=== PATIENT | male | born 1970 | race Caucasian/White ===

== ENCOUNTER 2017-11-29 11:32 | Inpatient (IN) | payer MEDICAID ==
[~2017-11-29] VITALS: Ht 170.2 cm; Wt 55.3 kg
[~2017-11-29 11:32] MED LIST: ASPIR 8181 MG PO; GLUCOPHAGE850 MG PO; LISINOPRIL5 MG PO; TYLENOL PM EX-1 EACH PO; UNICOMPLEX M TA1 TA1 PO; ZOLOFT50 MG PO
[2017-11-29 11:54] LABS: HEMATOCRIT 43.6 % (42.0-52.0); HEMOGLOBIN 14.5 gm/dL (14.0-18.0); MCH 33.6 pg (26.0-34.0); MCHC 33.2 g/dL (28.0-37.0); MCV 101.1 fL (80.0-100.0); MPV 7.9 fl. (7.2-11.1); NUCLEATED RBCS 0 /100WBC; PLATELET COUNT* 148 thou/uL (150-400); RBC 4.31 mil/uL (4.50-6.00); RDW-CV 14.1 % (10.5-14.5); WBC 17.7 thou/uL (4.0-11.0)
[2017-11-29 11:58] VITALS: BP 127/93
[2017-11-29 12:01] LABS: ANION GAP 27 mmol/L (7-16); BUN 16 mg/dL (7-18); CALCIUM 8.6 mg/dL (8.5-10.1); CHLORIDE 88 mmol/L (98-107); CO2 18 mmol/L (21-32); CREATININE 1.8 mg/dL (0.6-1.3); GLUCOSE 325 mg/dL (70-99); POTASSIUM 3.2 mmol/L (3.5-5.1); SODIUM 133 mmol/L (136-145)
[2017-11-29 12:03] LABS: INR 1.1; PROTIME 10.3 Seconds (9.20-11.50)
[2017-11-29 12:08] LABS: ALBUMIN 4.3 g/dL (3.4-5.0); ALKALINE PHOSPHATASE 106 U/L (46-116); SGOT 87 U/L (15-37); SGPT 80 U/L (30-65); TROPONIN-I LEVEL <0.06 ng/mL (<0.06)
[2017-11-29] MEDS ORDERED: NEURONTIN 300300 M1 PO (12:15)
[2017-11-29] MEDS ORDERED: LEXAPRO 10 MG T10 M2 PO (12:15)
[2017-11-29 12:16] LABS: ABSOLUTE BASOPHILS 0.2 thou/uL (0.0-0.2); ABSOLUTE EOSINOPHILS 0.2 thou/uL (0.0-0.7); ABSOLUTE LYMPHOCYTES 1.9 thou/uL (0.8-5.3); ABSOLUTE MONOCYTES 0.7 thou/uL (0.0-1.2); ABSOLUTE NEUTROPHILS 14.7 thou/uL (1.6-8.1); ANISOCYTOSIS 1+; PLATELET ESTIMATE DECREASED
[2017-11-29] MEDS ORDERED: REMERON 30 MG T30 M1 PO (12:16)
[2017-11-29] MEDS ORDERED: RISPERDAL 1 MG T1 MG PO (12:16)
[2017-11-29 12:17] LABS: POIKILOCYTOSIS 1+
[2017-11-29] MEDS ORDERED: TRAZODONE 150150 M1 PO (12:17)
[2017-11-29 12:51] LABS: BE -8.7 mmol/L (-2 to +3); PCO2 23.6 mmHg (35.0-45.0); pH 7.392 (7.340-7.450)
[2017-11-29 12:52] LABS: PO2 151.6 mmHg (75.0-100.0)
[2017-11-29 13:17] LABS: URINE BLOOD TRACE (Negative); URINE CLARITY CLEAR; URINE COLOR YELLOW; URINE GLUCOSE-RANDOM 2+ (Negative); URINE LEUKOCYTES-REFLEX NEGATIVE (Negative); URINE NITRITE-REFLEX NEGATIVE (Negative); URINE PROTEIN TRACE (Negative); URINE SPECIFIC GRAVITY >= 1.030 (1.005-1.030); URINE UROBILINOGEN 0.2 E.U./dl (0.2-1.0)
[2017-11-29 13:19] LABS: ICTOTEST (BILI CONFIRMATORY) Negative (Negative); URINE BILIRUBIN 1+ (Negative); URINE KETONES 3+ (Negative)
[2017-11-29 13:25] LABS: AMP/METHAMP Negative (Negative); BARBITURATES Negative (Negative); BENZODIAZEPINES Negative (Negative); COCAINE Negative (Negative); METHADONE Negative (Negative); OPIATES Negative (Negative); PCP Negative (Negative); THC Negative (Negative)
[2017-11-29 14:45] VITALS: BP 138/95
[2017-11-29 14:58] VITALS: BP 119/85
[2017-11-29 20:00] VITALS: BP 159/99
[2017-11-29 23:52] VITALS: BP 93/71
[2017-11-30 04:00] VITALS: BP 125/71
[2017-11-30 04:28] LABS: ABSOLUTE LYMPHOCYTES 3.4 thou/uL (0.8-5.3); ABSOLUTE MONOCYTES 0.9 thou/uL (0.0-1.2); BASOPHILS 0.2 %; EOSINOPHILS 0.3 %; HEMATOCRIT 34.1 % (42.0-52.0); MCHC 34.1 g/dL (28.0-37.0); MCV 99.9 fL (80.0-100.0); MPV 8.1 fl. (7.2-11.1); NUCLEATED RBCS 0 /100WBC; PLATELET COUNT* 93 thou/uL (150-400); POLYS 71.5 %; RBC 3.42 mil/uL (4.50-6.00); RDW-CV 14.2 % (10.5-14.5); WBC 15.4 thou/uL (4.0-11.0)
[2017-11-30 04:42] LABS: HEMOGLOBIN 11.6 gm/dL (14.0-18.0)
[2017-11-30 05:45] LABS: CALCIUM 7.5 mg/dL (8.5-10.1)
[2017-11-30 05:48] LABS: POTASSIUM 2.6 mmol/L (3.5-5.1)
[2017-11-30 08:00] VITALS: BP 156/101
--- NOTE | 2017-11-30 10:43 | EKG ---
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1970 Requested By: Lexi Layne Order Number: [id number] Reading MD: Jason Thakur Measurements Intervals [place] Rate: 133 P: 76 VA: 140 QRS: 250 QRSD: 93 T: 52 QT: 323 QTc: 481 Interpretive Statements Sinus tachycardia LAE, consider biatrial enlargement Right ventricular hypertrophy Inferior infarct, old old anterior infarction Compared to ECG 02/14/2015 10:13:05 Right ventricular hypertrophy now present Sinus rhythm no longer present Myocardial infarct finding still present Electronically Signed On 11-30-2017 10:43:28 CDT by Jason Thakur [email or web address] <ELECTRONICALLY SIGNED> By: Jason Thakur MD, [facility] 11/30/17 1043 1204 1204 Jason Thakur MD, [facility] /EPI
[2017-11-30 12:04] VITALS: BP 130/91
--- NOTE | 2017-11-30 14:44 | 2DMMODE ---
[place] [address] 2 D/M-MODE ECHOCARDIOGRAM Name: JONESBHAVYA W Room: [address] IN .R.#: [id number] Admission: 11/29/17 Attend Phys: Ghulam Hobbs, Discharge: Date of : 70 Date of Service: 11/30/17 1444 Report #: [id number] THIS REPORT FOR: //name// APPROVED REPORT Study performed: 11/30/2017 10:34:54 EXAM: Comprehensive 2D, Doppler, and color-flow Echocardiogram Patient Location: Bedside BSA: 1.60 HR: 110 bpm BP: 125/71 mmHg Other Information Study Quality: Good Indications Cardiomyopathy 2D Dimensions LVEF(%): 67.53 (>50%) IVSd: 11.72 (7-11mm) LVOT Diam: 22.75 (18-24mm) LVDd: 43.38 mm PWd: 8.71 (7-11mm) Ascending Ao: 31.01 (22-36mm) LVDs: 27.21 (25-40mm) Aortic Root: 27.01 mm Aguilera's LVEF: 67.53 % Volumes Left Atrial Volume (Systole) LA ESV Index: 24.40 mL/m2 Aortic Valve AoV Peak Marvin.: 1.19 m/s AO Peak Gr.: 5.70 mmHg LVOT Max P.99 mmHg AO Mean Gr.: 3.45 mmHg LVOT Mean P.34 mmHg LVOT Max V: 1.00 m/s AO V2 VTI: 16.30 cm LVOT Mean V: 0.72 m/s ADRIANNA (VTI): 3.89 cm2 LVOT V1 VTI: 15.61 cm Mitral Valve E/A Ratio: 1.00 MV Decel. Time: 234.13 ms MV E Max Marvin.: 0.76 m/[place] [address] 2 D/M-MODE ECHOCARDIOGRAM Name: BHAVYA JONES Joy Room: [address] IN [facility]#: [id number] Admission: 11/29/17 Attend Phys: Ghulam Hobbs, Discharge: Date of : 70 Date of Service: 11/30/17 1444 Report #: [id number] MV PHT: 67.90 ms MVA (PHT): 3.24 cm2 TDI E/Lateral E': 4.75 E/Medial E': 6.33 Medial E' Marvin.: 0.12 m/s Lateral E' Marvin.: 0.16 m/s Pulmonary Valve PV Peak Marvin.: 0.93 m/s PV Peak Gr.: 3.47 mmHg Left Ventricle The left ventricle is normal size. There is normal LV segmental wall motion. There is normal left ventricular wall thickness. Left ventricular systolic function is normal. The left ventricular ejection fraction is within the normal range. LVEF is 60-65%. The left ventricular diastolic function is normal. Right Ventricle The right ventricle is normal size. The right ventricular systolic function is normal. Atria The left atrium size is normal. The right atrium size is normal. Aortic Valve The aortic valve is normal in structure. No aortic regurgitation is present. There is no aortic valvular stenosis. Mitral Valve The mitral valve is normal in structure. Trace mitral regurgitation. No evidence of mitral valve stenosis. Tricuspid Valve The tricuspid valve is normal in structure. Trace tricuspid regurgitation. Pulmonic Valve The pulmonary valve is normal in structure. There is no pulmonic valvular regurgitation. Great Vessels The aortic root is normal in size. IVC is normal in size and collapses with >50% [place] [address] 2 D/M-MODE ECHOCARDIOGRAM Name: BHAVYA JONES Room: [address] IN [facility]#: [id number] Admission: 11/29/17 Attend Phys: Ghulam Hobbs, Discharge: Date of : 70 Date of Service: 11/30/17 1444 Report #: [id number] Pericardium There is no pericardial effusion. <Conclusion> Left ventricular systolic function is normal. The left ventricular ejection fraction is within the normal range. <ELECTRONICALLY SIGNED> By: Jason Thakur MD, FACC 11/30/17 1444 1444 1444 Jason Thakur MD, [facility] /INF
[2017-11-30 16:45] VITALS: BP 134/88
[2017-11-30 20:00] VITALS: BP 129/85
[2017-12-01] VITALS: BP 139/89
[2017-12-01 04:00] VITALS: BP 98/67
[2017-12-01 05:44] LABS: POTASSIUM 4.6 mmol/L (3.5-5.1)
[2017-12-01 08:30] VITALS: BP 157/96
[2017-12-01 10:58] LABS: ABSOLUTE BASOPHILS 0.1 thou/uL (0.0-0.2); ABSOLUTE LYMPHOCYTES 2.8 thou/uL (0.8-5.3); ABSOLUTE MONOCYTES 0.6 thou/uL (0.0-1.2); ABSOLUTE NEUTROPHILS 5.4 thou/uL (1.6-8.1); BASOPHILS 1.2 %; EOSINOPHILS 0.5 %; HEMATOCRIT 28.5 % (42.0-52.0); HEMOGLOBIN 9.7 gm/dL (14.0-18.0); MCH 34.3 pg (26.0-34.0); MCHC 34.1 g/dL (28.0-37.0); MCV 100.6 fL (80.0-100.0); MONOCYTES 6.8 %; NUCLEATED RBCS 0 /100WBC; PLATELET COUNT* 83 thou/uL (150-400); POLYS 60.5 %; RBC 2.83 mil/uL (4.50-6.00); RDW-CV 14.2 % (10.5-14.5); WBC 8.9 thou/uL (4.0-11.0)
--- NOTE | 2017-12-01 11:09 | EKG ---
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1970 Requested By: Ghulam Hobbs Order Number: [id number] Reading MD: Jai Griffin Measurements Intervals [place] Rate: 92 P: 38 VA: 160 QRS: -76 QRSD: 98 T: 6 QT: 357 QTc: 442 Interpretive Statements Sinus rhythm Probable left atrial enlargement Inferior infarct, old Anteroseptal infarct, age indeterminate Compared to ECG 11/29/2017 12:04:24 Sinus tachycardia no longer present Right ventricular hypertrophy no longer present Myocardial infarct finding still present Electronically Signed On 12-01-2017 11:09:08 CDT by Jai Griffin [email or web address] <ELECTRONICALLY SIGNED> By: Jai Griffin MD, FACC 12/01/17 1109 08 08 Jai Griffin MD, FACC /EPI
--- NOTE | 2017-12-01 11:15 | CON ---
[address] [address] CONSULTATION Name: JONESBHAVYA Room: [address] IN M.R.#: [id number] Admission: 11/29/17 Attend Phys: Ghulam Hobbs MD Discharge: Date of : 70 Report #: [id number] THIS REPORT FOR: //name// CC: Ghulam Hobbs [facility] physician/PCP DATE OF SERVICE: 11/30/2017 HISTORY OF PRESENT ILLNESS: The patient is a 47-year-old single white male who I was asked to see in the hospital today because of the presence of a loop recorder. The history was obtained from the patient. However, he is currently drowsy and barely arousable. There are no significant old records. He is primarily cared for at [facility]. He was hospitalized here in 01/2015. At that time, he apparently had been consuming alcohol and woke up with some numbness. Paramedics brought him here to [facility]. He has apparently been incarcerated in the past. He has a history of schizophrenia. He had previous coronary artery bypass surgery in 2012. He apparently had a history of strokes. The patient was eventually discharged and told to stop drinking alcohol and smoking. The patient recently apparently had a loop recorder implanted by Dr. Leo at [facility]. The reasons are unclear. The patient was brought to the emergency room last night by paramedics. Apparently, he was confused and weak. He had been drinking alcohol. The patient was brought to the Emergency Room. A code stroke was actually initiated last night. He was admitted to a monitored bed. The patient had some nausea and vomiting. He was admitted by the hospitalist service. Cardiology consultation was requested. PAST MEDICAL HISTORY: Otherwise significant for hypertension. MEDICATIONS: On admission last night included aspirin, Zoloft, metformin, lisinopril, Remeron, Risperdal, trazodone. ALLERGIES: He had no known drug allergies. FAMILY HISTORY: Positive for heart disease. SOCIAL HISTORY: He is single, lives in [place], [place]. He used to work for a [employer] service. He smokes and he drinks alcohol. No history of illicit drug use. REVIEW OF SYSTEMS: As noted. Apparently, he has a previous history of stroke, no history of asthma. No history of peptic ulcer disease or liver disease. 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 He has a history of bipolar disorder. PHYSICAL EXAMINATION: GENERAL: Revealed a disheveled, young white male, lying in bed[place] [address] CONSULTATION Name: BHAVYA JONES Room: [address]#: [id number] Admission: 11/29/17 Attend Phys: Ghulam Hobbs MD Discharge: Date of : 70 Report #: [id number] no acute distress. VITAL SIGNS: He had a blood pressure 120/80, pulse was 100, he was afebrile. HEENT: He is anicteric. Conjunctivae pink. Mucous members are moist. NECK: Veins do not appear distended. CHEST: Clear to auscultation. CARDIOVASCULAR: Regular rate and rhythm. ABDOMEN: Soft. EXTREMITIES: He had no edema. Posterior pulses 2+ bilaterally. SKIN: The patient appeared to have an implanted cardiac sonographer near the left nipple area. There was some erythema over the area; however, no drainage noted. It does not appear to be tender. It is somewhat firm. NEUROLOGIC: He is oriented to place and time and he is easily aroused, moved all extremities, but somewhat drowsy. LABORATORY DATA: His workup, he actually had an echocardiogram here in 2014 that showed an ejection fraction of 55% with no shunt noted by bubble study. His workup in the Emergency Room last night, he had a CT scan of the head done without contrast that showed evidence of previous infarction. Portable chest x-ray showed normal heart size, clear lung mendez. CT scan of the chest showed hyperinflated lung mendez, coronary artery disease consistent with calcification. CT scan of the abdomen without contrast after he fell showed hepatomegaly with steatosis, evidence of chronic pancreatitis, kidney stones. His lab work, sodium 134, potassium is only 3.6, his BUN 9, creatinine 1, glucose 130, magnesium is pending. Liver function studies were normal. Troponin 0.06. Alcohol less than 10. His white blood cell count 15.4, hemoglobin 11.6, platelet count 93,000. IMPRESSION AND RECOMMENDATIONS: 1. Drowsy. Suspect alcohol intoxication. 2. Previous stroke. 3. Previous coronary artery bypass surgery. 4. Hypertension. The patient has been on an DENISA inhibitor. 5. Diabetes. 6. Manic depressive illness. 7. Previous implantation of loop recorder, appears to be no active infection. 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 <ELECTRONICALLY SIGNED> By: Jason Thakur MD, FACC 12/01/17 1115 0808 1228Dayulia Thakur MD, FACC /nt
[2017-12-01 11:21] VITALS: BP 101/74
[2017-12-01 11:54] LABS: ALBUMIN 2.6 g/dL (3.4-5.0); CALCIUM 7.5 mg/dL (8.5-10.1); CREATININE 0.9 mg/dL (0.6-1.3); TOTAL BILIRUBIN 0.4 mg/dL (<0.1-1.0); TOTAL PROTEIN 5.1 g/dL (6.4-8.2)
[2017-12-01 15:39] VITALS: BP 118/79
[2017-12-01 20:00] VITALS: BP 154/99
[2017-12-02 01:01] VITALS: BP 142/92
[2017-12-02 04:00] VITALS: BP 115/79
[2017-12-02 05:00] LABS: ABSOLUTE BASOPHILS 0.1 thou/uL (0.0-0.2); ABSOLUTE EOSINOPHILS 0.1 thou/uL (0.0-0.7); ABSOLUTE LYMPHOCYTES 2.6 thou/uL (0.8-5.3); ABSOLUTE MONOCYTES 0.6 thou/uL (0.0-1.2); ABSOLUTE NEUTROPHILS 3.2 thou/uL (1.6-8.1); BASOPHILS 0.8 %; EOSINOPHILS 1.4 %; HEMATOCRIT 29.7 % (42.0-52.0); HEMOGLOBIN 9.9 gm/dL (14.0-18.0); LYMPHOCYTES 39.4 %; MCHC 33.5 g/dL (28.0-37.0); MCV 101.7 fL (80.0-100.0); MONOCYTES 9.4 %; MPV 8.3 fl. (7.2-11.1); NUCLEATED RBCS 0 /100WBC; PLATELET COUNT* 111 thou/uL (150-400); RBC 2.92 mil/uL (4.50-6.00); RDW-CV 13.6 % (10.5-14.5); WBC 6.5 thou/uL (4.0-11.0)
[2017-12-02 05:15] LABS: PREALBUMIN 15.3 mg/dL (18.0-35.7)
[2017-12-02 05:16] LABS: ALBUMIN 2.6 g/dL (3.4-5.0); CALCIUM 8.6 mg/dL (8.5-10.1); CREATININE 0.7 mg/dL (0.6-1.3); POTASSIUM 4.6 mmol/L (3.5-5.1); TOTAL BILIRUBIN 0.3 mg/dL (<0.1-1.0); TOTAL PROTEIN 5.8 g/dL (6.4-8.2)
[2017-12-02 07:40] VITALS: BP 150/107
[2017-12-02 16:23] VITALS: BP 133/91
[2017-12-02 20:00] VITALS: BP 146/95
[2017-12-03] VITALS: BP 112/73
[2017-12-03 04:00] VITALS: BP 146/93
[2017-12-03 08:00] VITALS: BP 100/76
--- NOTE | 2017-12-03 11:01 | EKG ---
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 : 1970 Requested By: Ghulam Hobbs Order Number: [id number] Reading MD: Jason Thakur Measurements Intervals [place] Rate: 92 P: 20 MT: 158 QRS: -87 QRSD: 87 T: 48 QT: 346 QTc: 429 Interpretive Statements Sinus rhythm Inferior infarct, old Anterior infarct, old Compared to ECG 11/30/2017 21:09:34 No significant changes Electronically Signed On 12-03-2017 11:00:52 CDT by Jason Thakur [email or web address] <ELECTRONICALLY SIGNED> By: Jason Thakur MD, [facility] 12/03/17 1100 19 19 Jason Thakur MD, [facility] /EPI
[2017-12-03 11:56] VITALS: BP 151/104
[2017-12-03] MEDS ORDERED: FOLIC ACID1 MG PO (15:13)
[2017-12-03] MEDS ORDERED: AUGMENTIN 875-1 EACH PO (15:14)
[2017-12-03] MEDS ORDERED: VITAMIN B-1100 M1 PO (15:18)
[2017-12-03 15:19] VITALS: BP 151/104
[2017-12-03 15:42] VITALS: BP 138/96
--- NOTE | 2017-12-07 17:33 | CON ---
[address] [address] CONSULTATION Name: JONESBHAVYA W Room: [address] IN M.R.#: [id number] Admission: 11/29/17 Attend Phys: Ghulam Hobbs MD Discharge: 12/03/17 Date of : 70 Report #: [id number] THIS REPORT FOR: //name// CC: Ghulam Hobbs [facility] physician/PCP DATE OF SERVICE: 12/02/2017 HISTORY OF PRESENT ILLNESS: This is a 47-year-old male patient who was evaluated by me for altered mental status. This patient is a poor historian. No family member is available, but I will try to get hold of them. I reviewed this patient's records and it looks like the patient was admitted with weakness and what appeared to be falls. The circumstances of that are not clear. The patient does have a history of pretty significant alcohol intake, and he was drinking alcohol at that time, but he cannot describe to me what happened during that period of time. His mentation has improved, but he is still moderately confused. He feels generalized weakness, but does not believe that he has any focal weakness. He does not complain of any associated spine symptoms. REVIEW OF SYSTEMS: Pretty extensive. I carried out the 14-point review of systems in this patient. It looks like this time he has been admitted with weakness. Prior to this he also had admission here in 2014 when he was still admitted with weakness at that time and he was also having trouble with alcoholism at that time. He still has the same problems. His CT scan shows stroke, but he does not know when this stroke happened. He has a history of subdural, but he does not provide me any more history in that regard. He has a loop recorder, but I do not know why he has the loop recorder. He has already been seen by director independent in that regard. He was complaining of some abrasions on multiple spots. He does not think his vision is impaired. He is not having any active musculoskeletal, constitutional, dermatological, hematological, throat, allergic symptom, which is new. He says he feels depressed, does not appear to be in any respiratory difficulty or has any ENT symptoms. PAST MEDICAL HISTORY: Positive for alcoholism. FAMILY HISTORY: Negative for any early age stroke. SOCIAL HISTORY: He smokes and he drinks alcohol. PHYSICAL EXAMINATION: Indicate he is alert. He is responsive. He knows it is November, but says it is . His speech is pretty dysarthric, is very difficult to understand. His memory, fund of knowledge is diminished. Cranial nerve examination 2-12 was carried out, and I do not see any definite abnormality. He moves all four extremities, but is pretty significantly weak in all four extremities. His reflexes are absent in the lower extremities, but position sense is present. His tone looks mostly unremarkable[place] [address] CONSULTATION Name: BHAVYA JONES Joy Room: [address] IN [facility].#: [id number] Admission: 11/29/17 Attend Phys: Ghulam Hobbs MD Discharge: 12/03/17 Date of : 70 Report #: [id number], but he does it so slowly it is very difficult for me to tell. I cannot have a very good look at the patient's fundus, but I do not believe there is a papilledema. He is a thinly built individual who does not have any dysmorphic features of eyes, ears and face. His vision and hearing look adequate. His cardiac examination appears unremarkable. He does not appear to be having any respiratory difficulty and has an occasional rhonchi on either side. His pulses are difficult to feel. He has no edema, cyanosis or jaundice. His blood pressure is 115/79, respirations 18, pulse is 75, temperature is 97.7. He is anemic with a hemoglobin of 9.9. His last magnesium was low at 1.5, but that was done in 2014. He did have a CT scan of the head, which was abnormal with a possible stroke on the left side. IMPRESSION: Very difficult to form in this patient as he is predisposed to multiple etiologies which can contribute to the patient's symptoms. He is predisposed to central pontine myelinolysis because of his history of alcoholism. He appears to have at least some neuropathy because his reflexes could not be elicited in the lower extremities. He has a prior history of stroke on the CT and a subdural and he has a history of chronic alcoholism. All of it will contribute to his symptoms, but I am not sure how much is treatable. I discussed the situation with him and I discussed with him that he needs to stop drinking alcohol and stop smoking. He understood that, but those advices have been given to him in the past also and he has not followed that. I need to find out why his MRI was canceled, but I suspect that may have been because he has metal or they may not be sure that his loop recorder is MRI compatible. We will also try to talk to the patient's daughter. RECOMMENDATIONS: 1. We will recheck the potassium. 2. I will do a TSH and vitamin B12 level. 3. I will try to find out why MRI was canceled. If MRI can be done, that will be a test of choice for central pontine myelinolysis secondary to alcoholism. 4. I agree with rehabilitation evaluation to see if he is a candidate. 5. He will need some evaluation of his spine if it can be done, if further workup is unremarkable, especially if MRI of the brain can be done and if it is unremarkable, then we need to look at his spine, but I am not sure if any of those can be done and I will talk to the radiologist about it. We will also discuss the patient with you. Thank you very much for this referral and I will follow the patient along with you. <ELECTRONICALLY SIGNED> By: Truong [place] MD 12/07/17 1733 0832 1453Pkuldip Washington MD /nt
== END 2017-12-03 17:45 | DRG 177 ==
LOC: M.ERS 11:32 → M.2W 13:56 → M.TBA-ER 13:56 → M.2W 14:48
PROVIDERS: Personal Emergency Response Attendant; ADMIT Internal Medicine
DX: J69.0 Pneumonitis due to inhalation of food and vomit (principal); G93.40 Encephalopathy, unspecified; F31.30 Bipolar disorder, current episode depressed, mild or moderate severity, unspecified; N17.9 Acute kidney failure, unspecified; R65.10 Systemic inflammatory response syndrome (SIRS) of non-infectious origin without acute organ dysfunction; E87.2 Acidosis; K86.1 Other chronic pancreatitis; E86.0 Dehydration; F41.9 Anxiety disorder, unspecified; F10.20 Alcohol dependence, uncomplicated; I10 Essential (primary) hypertension; E11.65 Type 2 diabetes mellitus with hyperglycemia; E11.42 Type 2 diabetes mellitus with diabetic polyneuropathy; F17.210 Nicotine dependence, cigarettes, uncomplicated; W18.30XA Fall on same level, unspecified, initial encounter; Y93.89 Activity, other specified; Y92.89 Other specified places as the place of occurrence of the external cause; Y99.8 Other external cause status; Z86.73 Personal history of transient ischemic attack (TIA), and cerebral infarction without residual deficits; Z95.1 Presence of aortocoronary bypass graft; Z79.899 Other long term (current) drug therapy; Z82.49 Family history of ischemic heart disease and other diseases of the circulatory system

== ENCOUNTER 2017-12-03 15:39 | Inpatient (IN) | payer MEDICAID ==
[~2017-12-03] VITALS: Ht 170.2 cm; Wt 54.4 kg
[~2017-12-03 15:39] MED LIST changes: +AUGMENTIN 875-1 EACH PO; +FOLIC ACID1 MG PO; +LEXAPRO 10 MG T10 M2 PO; +NEURONTIN 300300 M1 PO; +REMERON 30 MG T30 M1 PO; +RISPERDAL 1 MG T1 MG PO; +TRAZODONE 150150 M1 PO; +VITAMIN B-1100 M1 PO
[2017-12-03 17:40] VITALS: BP 112/88
[2017-12-03 20:00] VITALS: BP 125/91
[2017-12-04 05:16] LABS: CALCIUM 9.6 mg/dL (8.5-10.1); CREATININE 0.8 mg/dL (0.6-1.3); MAGNESIUM 1.3 mg/dL (1.8-2.4); POTASSIUM 5.2 mmol/L (3.5-5.1)
--- NOTE | 2017-12-04 05:16 | NUR ---
ASSUMED PATIENT AT 1900. SPARK PLUG TESTER ASSESSMENT COMPLETED DOCUMENTED, PATIENT HAD NO COMPLAINTS OF PAIN OR DISCOMFORT. PATIENT IN BED UPON ARRIVAL, DID NOT WITNESS PATIENT OUT OF BED DURING SIFT. UINATES PER URINAL AND CALLS OUT FOR SAFF TO EMPTY. HOURLY ROUNDING COMPLETED DOCUMENTED.
[2017-12-04 05:53] LABS: HEMATOCRIT 36.1 % (42.0-52.0); MCH 32.9 pg (26.0-34.0); MCV 99.8 fL (80.0-100.0); MPV 7.6 fl. (7.2-11.1); RBC 3.62 mil/uL (4.50-6.00); RDW-CV 14.2 % (10.5-14.5); WBC 7.2 thou/uL (4.0-11.0)
[2017-12-04 05:56] LABS: HEMOGLOBIN 11.9 gm/dL (14.0-18.0)
[2017-12-04 07:38] VITALS: BP 119/92
--- NOTE | 2017-12-04 09:14 | NUR ---
Nutrition: Pt admitted to Rehab with encephalopathy. RD visited with pt on other floor. He had stated he lost some wt d/t poor appetite. Usual wt was 135#, then down to 115#. Pt has had a good appetite since admission to hospital. Wt is now 122#. RX: folic acid, thiamine. Labs: BG 221, Na 134, K+ 5.2, alb 2.6, prealb 16.8. 2gm Na diet. Will continue to follow pt weekly on Rehab unit.
--- NOTE | 2017-12-04 15:24 | NUR ---
ASSESSMENT COMPLETED REFER TO COMPUTER CHARTING. PATIENT RESTING IN BED REPORTING NO PAIN, NAUSEA OR SHORTNESS OF AIR. BED IN LOW AND LOCKED POSITION. CALL LIGHT WITHIN REACH. PATIENT ON ROOM AIR. WORKING WITH THEARPY THIS SHIFT. DR DAVILA AND SURGERY BOTH CONSULTED FOR LEFT CHEST. DR DELACRUZ NOTIFIED WELL. NO NEW ORDERS AT THIS TIME. WILL CONTINUE TO MONITOR THIS SHIFT.
--- NOTE | 2017-12-04 16:37 | NUR ---
SW met with pt and pt friends/caregivers were bedside. SW completed assessment, introduced self, and SW role on rehab unit. Pt alert, oriented. Pt lives alone with caregiver/friend support; they live about 10 miles away. Pt has a cane and a walker. SW to continue to follow to assist with safe dc planning.
[2017-12-04 20:08] VITALS: BP 120/84
--- NOTE | 2017-12-05 02:16 | NUR ---
ASSUMED CARE AT 1930. PAIIENT IN CHAIR UNTIL AROUND 1999. UP WITH SBA, GAIT BELT, WALKER. REFUSED TO CHANGE OUT OF CLOTHES AT HS. VOIDS FELIBERTO URINE PER URINAL. TOOK COLACE THIS PM. NO C/O PAIN. HOURLY ROUNDS CONTINUE. BED ALARM ELECTRICAL DESIGN ENGINEER LITE IN REACH.
[2017-12-05 04:16] LABS: HEMATOCRIT 35.3 % (42.0-52.0); MCH 33.9 pg (26.0-34.0); MCHC 33.9 g/dL (28.0-37.0); MCV 100.1 fL (80.0-100.0); MPV 7.6 fl. (7.2-11.1); RBC 3.53 mil/uL (4.50-6.00); RDW-CV 13.6 % (10.5-14.5); WBC 7.4 thou/uL (4.0-11.0)
[2017-12-05 04:48] LABS: ALBUMIN 3.3 g/dL (3.4-5.0); CALCIUM 9.4 mg/dL (8.5-10.1); MAGNESIUM 1.6 mg/dL (1.8-2.4); POTASSIUM 4.7 mmol/L (3.5-5.1); TOTAL BILIRUBIN 0.2 mg/dL (<0.1-1.0); TOTAL PROTEIN 6.8 g/dL (6.4-8.2)
--- NOTE | 2017-12-05 05:23 | NUR ---
SLEPT MOST OF THE NIGHT. TURNS SELF, VOIDS PER URINAL, NURSING EMPTIES. NO C/O PAIN. HOURLY ROUNDS CONTINUE. BED ALARM ON. CALL LITE IN REACH.
[2017-12-05 07:56] VITALS: BP 91/68
[2017-12-05 08:00] VITALS: BP 91/68
[2017-12-05 16:19] LABS: CALCIUM 9.4 mg/dL (8.5-10.1); MAGNESIUM 1.6 mg/dL (1.8-2.4); POTASSIUM 4.3 mmol/L (3.5-5.1)
--- NOTE | 2017-12-05 17:44 | NUR ---
PATIENT HAS BEEN A/O X 4 THIS SHIFT, FORGETFUL AND SLOW TO RESPOND WITH PROCESSING. PATIENT HAD LOOP RECORDER REMOVED WITH DR SINCLAIR AT BEDSIDE THIS SHIFT. DRESSINGS TO CHEST REMAIN CLEAN, DRY AND INTACT. PATIENT PARTICIPATED WITH ALL THERAPIES THIS SHIFT. PATIENT SBA WITH WALKER TO TRANSFER. PATIENT VOIDING PER URINAL. PATIENT UP IN CHAIR FOR MAJORITY OF SHIFT. TOLERATING DIET AND TAKING ORAL FLUIDS WELL. PATIENT TO DINING ROOM FOR MEALS. MAG BEING REPLACED PER ELECTROLYTE PROTOCOL. HOULRY ROUNDING COMPLETED. CALL LIGHT WITHIN REACH. WILL CONTINUE WITH PLAN OF CARE.
[2017-12-05 21:48] VITALS: BP 109/82
--- NOTE | 2017-12-05 22:17 | NUR ---
ASSUMED CARE AT 1930. PATIENT RESTING IN BED. VOIDS PER URINAL LARGE AMOUNTS LIGHT YELLOW URINE. NURSING EMPTIES. TURNS SELF. TAKES PILLS WHOLE WITH WATER. MEDIAL CHEST DRESSING C/D/I. LATERAL CHEST DRESSING HAS OLD SHAWDOW SEROSANG DRAINAGE. GAVE MG AT HS PER ELECTROLYE PROTOCOL, SEE MAR. WILL DRAW LABS IN AM PER PROTOCOL. TOOK COLACE AT HS, DID NOT WANT MOM UNTIL MORNING BECAUSE OF CONCERN OF HAVING BM IN THE NIGHT. NO C/O PAIN. HOURLY ROUNDS CONTINUE. BED ALARM ON. CALL LITE IN REACH.
--- NOTE | 2017-12-06 05:16 | NUR ---
SLEPT MOST OF THE NIGHT EXCEPT TO VOID. VOIDS PER URINAL FELIBERTO URINE. NO C/O PAIN. TURNS SELF. HOURLY ROUNDS CONTINUE. BED ALARM ON. CALL LITE IN REACH.
--- NOTE | 2017-12-06 08:20 | NUR ---
SURGERY RESIDENT IN ROOM AND CHANGED DRESSINGS WITHOUT NOTIFYING RN, UNABLE TO OBTAIN PICTURES OF WOUNDS AT THIS TIME.
[2017-12-06 09:22] VITALS: BP 122/87
[2017-12-06 09:30] VITALS: BP 122/87
--- NOTE | 2017-12-06 17:53 | NUR ---
PATIENT HAS BEEN A/O THIS SHIFT, SLOW TO RESPOND AT TIMES. PATIENT UP TO CHAIR THIS SHIFT. PATIENT SBA WITH GAITBELT AND WALKER. PATIENT BATHED WITH SUPERVISION THIS SHIFT. PATIENT SUPERVISION WITH DRESSING, NEEDING CUES AT TIMES. PATIENT MEDICATED FOR CHEST WALL PAIN WITH TYLENOL WITH FAIR AFFECT. PATIENT'S MAG REPLACED PER ELECTROLYTE PROTOCOL, REPEAT LABS IN AM. DRESSINNGS TO LEFT CHEST CHANGED BY SURGERY THIS AM, UNABLE TO OBTAIN PICTURES. PATIENT HAS SLEPT IN NAPS THIS AFTERNOON. PATIENT EATING WELL AND TOLERATING ORAL FLUIDS. HAD VISITORS THIS AFTERNOON. HOURLY ROUNDING COMPLETED. CALL LIGHT WITHIN REACH. WILL CONTINUE WITH PLAN OF CARE.
[2017-12-06 20:39] VITALS: BP 123/84
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
[2017-12-07 05:04] LABS: HEMATOCRIT 31.9 % (42.0-52.0); HEMOGLOBIN 10.9 gm/dL (14.0-18.0); MCHC 34.2 g/dL (28.0-37.0); MCV 99.2 fL (80.0-100.0); MPV 7.5 fl. (7.2-11.1); RBC 3.22 mil/uL (4.50-6.00); RDW-CV 13.2 % (10.5-14.5); WBC 6.3 thou/uL (4.0-11.0)
[2017-12-07 05:07] LABS: ALBUMIN 3.1 g/dL (3.4-5.0); CALCIUM 8.6 mg/dL (8.5-10.1); CREATININE 0.9 mg/dL (0.6-1.3); MAGNESIUM 1.8 mg/dL (1.8-2.4); POTASSIUM 3.8 mmol/L (3.5-5.1); TOTAL BILIRUBIN 0.2 mg/dL (<0.1-1.0); TOTAL PROTEIN 6.4 g/dL (6.4-8.2)
--- NOTE | 2017-12-07 05:48 | NUR ---
SLEPT MOST OF THE NIGHT. TURNS SELF. VOIDS PER URINAL. NO C/O PAIN. HOURLY ROUNDS CONTINUE. BED ALARM ON. CALL LITE IN REACH.
[2017-12-07 08:00] VITALS: BP 107/76
--- NOTE | 2017-12-07 17:14 | NUR ---
SHIFT NOTE - DRESSING CHANGE DONE TO ANT CHEST. PACKING REPLACED AND 4X4 COVERED AREA. WOUND PIC OBTAINED. PT TO AMBULATE TO [facility] WITH WALKER FOR LUNCH AND DINNER.
[2017-12-07 20:09] VITALS: BP 105/74
--- NOTE | 2017-12-07 21:15 | NUR ---
RESTING QUIETLY IN BED AND WATCHING TV. TYLENOL GIVEN FOR COMPLAINT OF INCISIONAL PAIN WHERE CARDIAC DEVICE WAS REMOVED. 4X4 DRESSINGS OVER INCISION SITES DRY/INTACT. VOIDS DARK/YELLOW URINE PER URINAL. TOOK MEDICATIONS WHOLE WITH WATER. SNACK PROVIDED.
[2017-12-08 09:17] VITALS: BP 106/82
--- NOTE | 2017-12-08 16:54 | NUR ---
ASSUMMED CARE OF PT AT 0730, PT ALERT AND ORIENTED, SLOW TO ANSWER QUESTIONS AT TIMES, TRANSFERS WITH SBA GB WALKER, VOIDS PER URINAL, BM X 1 THIS SHIFT, CHEST INCISIONS REPACKED, SMALL AMOUNT OF BROWN DRAINAGE ON DRESSINGS, PT DENIES NEED FOR PAIN MEDICATION, PT UP IN CHAIR ALL SHIFT, PARTICIPATED IN ALL THERAPIES, AMBULATED TO DININGROOM FOR MEALS, HOURLY ROUNDING COMPLETED, ASSESSMENT COMPLETE, WILL CONTINUE TO MONITOR.
--- NOTE | 2017-12-08 20:05 | NUR ---
SITTING UP IN RECLINER WATCHING TV. PAIN MEDICATION GIVEN FOR INCISIONAL PAIN IN CHEST AREA. DRESSING OVER TWO INCISIONS DRY/INTACT. SNACK PROVIDED. TOOK MEDICATIONS WHOLE WITH WATER.
[2017-12-08 20:38] VITALS: BP 97/65
--- NOTE | 2017-12-09 05:23 | NUR ---
RESTED QUIETLY. NO FURTHER COMPLAINT OF URINE. USED THE URINAL DURING THE NIGHT. HOURLY ROUNDING IN PROGRESS.
[2017-12-09 09:00] VITALS: BP 117/83
--- NOTE | 2017-12-09 14:55 | NUR ---
SW met with pt to review team conference summary with pt and plan for pt to remain on rehab unit at least one more week with team to reassess pt length of stay during team conference next Thursday. Pt in agreement with plan. Team reported pt is supervision/standby to contact gaurd assist with most tasks of mobility and ADLs and mod assist to min assist with problem solving. Pt goal to be closer to mod I with all tasks as pt plans to dc home alone. SW to continue to follow to assist with safe dc planning.
--- NOTE | 2017-12-09 16:16 | NUR ---
PT HAS PARTICIPATED WITH THERAPIES AND CALLS FOR ASSSIST NEEDED. PT AMBULATES WITH GAITBELT AND SBA WITHOUT WALKER WITH STEADY GAIT. PRN FOR INCISIONAL CHEST PAIN GIVEN WITH GOOD EFFECT. INCISIONS TO CHEST CLEANSED WITH NUGAUZE REPACKED AND DRESSING APPLIED.NO DRAINAGE NOTED.PT REMAINS ALERT AND ORIENTATED AND IS CONTINENT OF B+B. PT PROGRESSES TOWARDS GOALS AND HOURLY ROUNDING CONTINUES.
[2017-12-09 19:40] VITALS: BP 110/64
--- NOTE | 2017-12-10 01:21 | NUR ---
ASSUMED CARE @ 1927-.SITS IN RECLINER W/ LE'S UP WATCHING TV.CHAIR ALARM ALREADY ON @ THIS TIME.SBA FOR TRANSFERS W/ GAIT BELT ONLY.HOB IN BED. HEELS OFF BED @ 2144.BED ALARM PUT ON @ 2144.URINAL W/IN REACH.NURSE EMPTIES URINAL @ NIGHT.TURNS SELF @ NIGHT.ON HOURLY ROUNDS.
--- NOTE | 2017-12-10 05:39 | NUR ---
SLEEPING SINCE 0.USED URINAL X2 DURING NIGHT.TOOK ALL TURKEY SANDWICH, PEACHES,APPLE JUICE,TIFFANY CRACKERS-1 PACKAGE & ORANGE SHERBET HS SNACKS. SLEPT CONTINOUSLY SINCE 0.
[2017-12-10 08:02] VITALS: BP 111/75
--- NOTE | 2017-12-10 18:49 | NUR ---
PT AMBULATES TO DINNINGROOM WITH SBA AND GAITBELT ON WITH STEADY GAIT. PT STARTED ON GLUCOSE MONITORING AND HAS HIGH BG WITH NOTIFIED AND EXTRA INSULIN GIVEN. PT HAS ALSO BEEN STARTED ON ORAL AGENTS. PT WAS QUESTIONED ABOUT CHECKING BLOOD GLUCOSE AT HOME AND DIABETIC MEDICATIONS AND STATED HE WAS ON MEDICATIONS AND CHECKED GLUCOSE AT HOME BUT DID NOT INFORM REHAB NURSES OF THIS.WILL REEDUCATE ON IMPORTANCE OF MONITORING AND MEDICATION TO CONTROL BG.PT SEENS TO BE ALERT AND ORIENTATED AND IS APPROPIATE.PT DOES CALL FOR ASSIST TO BATHROOM AND FOR ALL AMBULATION.PT PROGRESSES TOWARDS GOALS AND HOURLY ROUNDING CONTINUES.
[2017-12-10 20:10] VITALS: BP 110/73
--- NOTE | 2017-12-11 05:19 | NUR ---
PT SLEPT MOST OF SHIFT. ASSESSMENT DOCUMENTED. MEDS GIVEN PER E-JUN. NO REPORTS OF PAIN. PT AMBULATED FROM CHAIR TO BED WITH NO ASSIST. WILL CONTINUE WITH PLAN OF CARE.
[2017-12-11 08:35] VITALS: BP 109/69
--- NOTE | 2017-12-11 12:36 | NUR ---
WOUND CARE NOTE: CONSULT RECEIVED FOR SKIN TEARS. PATIENT IS S/P REMOVAL OF A LOOP RECORDER WITH 2 OPEN AREAS TO HIS LEFT CHEST. APPEARS THAT DISTAL TO THE DISTAL MOST WOUND THERE HAD BEEN A SKIN TEAR, BUT IT APPEARS TO HAVE HEALED. LEFT CHEST, SUPERIOR: FULL THICKNESS TISSUE BREAKDOWN MEASURING 0.2X1.4X1. ELIE-WOUND INTACT. CLEANSED WITH WOUND CLEANSER, PATTED DRY. PACKED WITH AQUACEL AG AND COVERED WITH BORDERED GAUZE. LEFT CHEST, DISTAL: FULL THICKNESS TISSUE BREAKDOWN MEASURING 0.5X2.5X1.2. ELIE-WOUND APPEARS EDEMATOUS. CLEANSED WITH WOUND CLEANSER, PATTED DRY. PACKED WITH AQUACEL AG AND COVERED WITH BORDERED GAUZE. EDUCATED PATIENT ON DRESSING SELECTION, COMMUNICATED UNDERSTANDING. SPOKE WITH PHYSICIAN AND NEW ORDERS OBTAINED. RECOMMEND ENCOURAGE GOOD NUTRITION/HYDRATION DAILY DRESSING CHANGES
--- NOTE | 2017-12-11 18:12 | NUR ---
PT CARE ASSUMED AT 0730, ASSESSMENT AND VITAL SIGNS COMPLETED DOCUMENTED. PT HAS BEEN PLEASANT AND COOPERATIVE, COMPLETED ALL THERAPY SESSIONS SCHEDULED. PT AMBULATES TO AND FROM THE DINING ROOM FOR MEALS, EATS NEARLY 100% OF ALL MEALS AND INTERACTS WELL WITH THE OTHERS AT THE TABLE. HOURLY ROUNDING AND FALL PRECAUTIONS IN PLACE. NO ACUTE DISTRESS.
[2017-12-11 20:00] VITALS: BP 116/72
--- NOTE | 2017-12-12 00:56 | NUR ---
ASSUMED CARE AT 1930. RESTED IN RECLINER UNTIL AROUND 2129. UP WITH SBA, GAIT BELT, WALKER. HAD BOX LUNCH FOR HS SNACK. NO C/O PAIN. VOIDS PER URINAL. TAKES PILLS WHOLE WITH WATER. DRESSINGS TO CHEST C/D/I. TURNS SELF, REFUSES ASSIST. OBSERVED SLEEPING ON BOTH SIDES THUS FAR THIS SHIFT. HOURLY ROUNDS CONTINUE. BED ALARM ON. CALL LITE IN REACH.
--- NOTE | 2017-12-12 05:39 | NUR ---
OBSERVED SLEEPING ON HOURLY ROUNDS. NO C/O PAIN. VOIDS PER URINAL. BED ALARM ON. CALL LITE IN REACH. HOURLY ROUNDS CONTINUE.
[2017-12-12 08:00] VITALS: BP 126/82
--- NOTE | 2017-12-12 14:47 | NUR ---
ASSUMED CARE THIS AM, A/O, DENIES PAIN, NO DISTRESS NOTED, SEE ASSESSMENT FOR DETAILS. COMPLIANT WITH MEDS/CARES, PROGRESSING WELL WITH THERAPY TOWARD FUNCTIONAL GOALS. LEFT CHEST DRESSINGS CHANGED THIS SHIFT, MAGDALENO WELL. CONT POC.
--- NOTE | 2017-12-12 16:26 | NUR ---
DR. HILTON WITH VASCULAR SURGERY PAGED EARLIER REQUESTED BY DR. HANDLEY REGARDING COUMADIN MANAGEMENT DUE TO DEBRIDEMENT SCHEDULED FOR THURSDAY. NO RESPONSE FROM DR. HILTON OF THIS NOTE, PAGING AGAIN AT THIS TIME.
--- NOTE | 2017-12-12 18:27 | NUR ---
NO NEW ORDERS FROM DR. HILTON, STATES HE COULDN'T MAKE THAT DECISION. COUMADIN HELD PER PATIENT REQUEST, WOUND VAC STABLE, DSGS TO LLE C/D/I.
[2017-12-12 19:40] VITALS: BP 110/74
--- NOTE | 2017-12-13 02:06 | NUR ---
ASSUMED CARE @ -SAT.USING TOILET @ THIS TIME.VOIDED ONLY.ASSISTED TO BED @1924.HOB UP 30 DEGREES.URINAL W/IN REACH.HEELS OFF BED @ 1924.WATCHING TV.BED ALARM PUT ON @ 1924.SEE PAIN MANAGEMENT @ 2029.TURNS SELF @ NIGHT.TEMP @ 0-99.5 ORAL.TEMP RE-CHECKED @ 2214-.7 ORAL.NURSE EMPTIES URINAL @ NIGHT.ON HOURLY ROUNDS.
--- NOTE | 2017-12-13 05:22 | NUR ---
SLEPT EARLY SINCE 2114 & SLEPT THROUGH THE NIGHT.BRP X1.DID NOT USE URINAL DURING NIGHT.TOOK ALL TURKEY SANDWICH,POTATO CHIPS,PEACHES AND APPLE JUICE HS SNACKS.
--- NOTE | 2017-12-13 06:32 | NUR ---
LAST BM PER RECORD-12/09-THU.PRUNE JUICE 120 ML TAKEN @ 0604-12/13-THURSDAY.
--- NOTE | 2017-12-13 08:16 | PLAN ---
[address] [address] REHAB UNIT PLAN OF CARE Name: JONESBHAVYA Room: [address] IN .R.#: [id number] Admission: 12/03/17 Attend Phys: Mile Marinelli DO Discharge: Date of : 70 Report #: [id number] THIS REPORT FOR: //name// CC: AMANDA physician/PCP Mile Marinelli DATE OF SERVICE: 12/04/2017 OVERALL PLAN OF CARE: This is a 47-year-old male admitted to inpatient rehabilitation status post acute hospitalization beginning on 11/29/2017 for encephalopathy, aspiration pneumonia, multiple medical comorbidities. He does have a longstanding history of alcohol abuse, is very frail. Medical prognosis is fair. Rehabilitation prognosis is fair. Estimated length of stay is 10 to 12 days with discharge disposition to the home setting where he has mobile home with 5 steps to enter, but he does have some local friends that help him with some of his laundry and grocery shopping. Previous level of function was modified independent to independent with activities of daily living. Current level of function is [id number], assistance of 1 to 2 depending on therapy, activity and time of day. Again, estimated length of stay is 10 to 12 days. Physical therapy will see the patient 60 to 90 minutes per day, 5 days per week, working on upper and lower body strength, balance, coordination, navigation. Occupational therapy will work with the patient 60 to 90 minutes per day, 5 days per week, working on upper and lower body strength, balance, coordination, navigation, bathing, dressing, and toileting. Speech and language pathology will work with the patient 30 to 90 minutes per day, 5 days per week, working on comprehension, expression, social interaction, problem solving and memory. This is an overall plan of care, may change from time to time. We will team weekly and make changes to plan of care as needed. <ELECTRONICALLY SIGNED> By: Mile Marinelli DO 12/13/17 0816 1241 [id number] Marinelli DO /nt
--- NOTE | 2017-12-13 08:16 | H ---
[address] [address] HISTORY AND PHYSICAL Name: BHAVYA JONES Joy Room: [address] IN .Dilan.#: [id number] Admission: 12/03/17 Attend Phys: Mile Marinelli DO Discharge: Date of : 70 Report #: [id number] THIS REPORT FOR: //name// CC: AMANDA physician/PCP Mile Marinelli DATE OF SERVICE: 12/03/2017 HISTORY OF PRESENT ILLNESS: This is a 47-year-old male who is known from previous consultation, admitted to inpatient rehabilitation to facilitate safe discharge home, status post acute hospitalization beginning on 11/29/2017 where he was admitted for encephalopathy, aspiration pneumonia with multiple medical comorbidities. He was followed by Neurology, thought perhaps to have a spinal cord lesion, waiting to have that further worked up and also awaiting Cardiology. Otherwise, no significant changes to the preadmission screening. EMS was called. Initially, he had slurred speech, vomiting and history of previous stroke, residual left hemiparesis and facial droop. He also has a longstanding history of alcohol abuse. He was found to have aspiration pneumonia, SIRS, metabolic acidosis, encephalopathy. He is medically stable, participating in physical and occupational therapy and appropriate for inpatient rehabilitation. Previous level of function per his account is independent to modified independent with activities of daily living. Current level of function is ygylqxz-ju-[id number] assistance of 1-2 depending on therapy, activity and time of day. He also has pvvm-rd-vbvgqkar impairment of comprehension, expression, social interaction, problem solving, and memory. Estimated length of stay is 10-12 days with discharge disposition to the home setting where he does live alone in a mobile home, 5 steps to enter. He does have a couple that does help him with some of his household issues as well as shopping and laundry. He does have a loop recorder in place. He is followed by Dr. Thakur. The only change really to that is that it has kind of reddened, he is currently on Augmentin twice a day for that. 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 PAST SURGICAL HISTORY: He has had CABG x3 and a loop recorder placement. MEDICATIONS: Have been reviewed and are available in the MAR. ALLERGIES: No known drug allergies. SOCIAL HISTORY: Regular alcohol use and abuse. No tobacco [place] [address] HISTORY AND PHYSICAL Name: BHAVYA JONES Room: [address] IN ..#: [id number] Admission: 12/03/17 Attend Phys: Mile Marinelli DO Discharge: Date of : 70 Report #: [id number] FAMILY HISTORY: Heart disease. REVIEW OF SYSTEMS: A 14-point review of systems is done and is negative except as mentioned in HPI; specifically no fever, chest pain, shortness of breath, abdominal pain or distention. No change in bowel, no change in bladder. PHYSICAL EXAMINATION: GENERAL: Alert, oriented, in no apparent distress. VITAL SIGNS: Reviewed and are stable. HEENT: Atraumatic, normocephalic. Pupils are equal, round, reactive. ABDOMEN: Soft, nontender, nondistended. NEUROLOGIC: Cranial nerves 2-12 are grossly intact with no focal neuro deficits. He does appear frail and he does have a little bit of tremor as well as peripheral neuropathy noted. IMPRESSION: 1. Encephalopathy. 2. Aspiration pneumonia. 3. History of alcohol abuse with polyneuropathy in the bilateral lower extremities. 4. Multiple medical comorbidities including diabetes, hypertension, history of CVA with residual left hemiparesis as well as others mentioned above. PLAN: 1. Admission to inpatient rehabilitation to facilitate safe discharge home. PT, OT, speech, language, case management, nursing and HIMS to make evaluations and recommendations. 2. Medication reconciliation has been completed. 3. We will have Cardiology and Neurology follow him as well as Infectious Disease. 4. We will team him weekly and plan of care is pending. <ELECTRONICALLY SIGNED> By: Mile Marinelli DO 12/13/17 0816 1239 [id number] Marinelli DO /nt
[2017-12-13 08:30] VITALS: BP 102/72
--- NOTE | 2017-12-13 17:30 | NUR ---
PATIENT HAS BEEN ALERT AND ORIENTED TODAY. NO COMPLAINTS TODAY, TOLERATED DRESSING CHNAGE WELL TODAY. HAS BEEN UP WITH STAND BY TO GET DRESSED, USING URINAL TODAY. APPETITE HAS BEEN GOOD, NEEDS NO ASSISTANCE WITH MEALS. CALL LIGHT IS IN REACH, WILL CONTINUE TO MONITOR.
[2017-12-13 19:40] VITALS: BP 96/67
--- NOTE | 2017-12-14 01:25 | NUR ---
ASSUMED CARE @ 1914-12/13-SUN.APPEARS SLEEPING IN BED W/ HOB UP.BED ALARM PUT ON @ 1914.LAST BM-12/09-THU.DULCOLAX SUP ONE RECTALLY GIVEN @ 1951.NO STOOLS FELT WHEN SUP INSERTED.BRP W/ ASSIST @ 2009-HAD EXTRA LARGE SOFT BM.SBA W/ TOILETING.TEMP @ 0-99.0 oral.temp re-checked @ 2149-98.7 oral.TURNS SELF @ NIGHT.ON HOURLY ROUNDS.
--- NOTE | 2017-12-14 05:14 | NUR ---
SLEEPING SINCE 1914 & THROUGH OUT THE NIGHT.AWAKE ONLY @ 1999 & 2099.BRP X1 ONLY @ 2009 AFTER SUP GIVEN.DID NOT USE URINAL DURING NIGHT.URINAL W/IN REACH. TOOK ALL TURKEY SANDWICH,POTATO CHIPS,PEACHES,TIFFANY CRACKERS -ONE PACKAGE, & APPLE JUICE HS SNACKS.
[2017-12-14 08:00] VITALS: BP 110/65
--- NOTE | 2017-12-14 15:55 | NUR ---
AM ASSESSMENT AND VITAL SIGNS COMPLETED DOCUMENTED. PT CONTINUES TO BE PLEASANT AND COOPERATIVE, COMPLETES ALL THERAPY SESSIONS SCHEDULED. PT IS SBA TO MOD I IN MOST AREAS, SUPERVISION FOR SAFETY. FALL PRECAUTIONS AND HOURLY ROUNDING IN PLACE, NO ACUTE DISTRESS.
[2017-12-14 19:55] VITALS: BP 107/76
--- NOTE | 2017-12-15 05:28 | NUR ---
PT SLEPT WELL OVERNIGHT AFTER RECEIVING MEDS AT HS. USING URINAL INDEP TO VOID. DRSG CDI TO CHEST. HAS DENIED PAIN OR PROBLEMS THIS SHIFT.HS ACCUCHECK 220, INSULIN GIVEN ORDERED WITH SNACK. MOVES ABOUT IN BED INDEP. BED ALARM ON OVERNIGHT FOR SAFETY. ABLE TO USE CALL LITE AND MAKE NEEDS KNOWN.
[2017-12-15 08:00] VITALS: BP 96/66
--- NOTE | 2017-12-15 10:38 | NUR ---
SW called and spoke with pt neighbors/caregiver/friends Yolette and Yolette's in preparation for team conference tomorrow. SW discussed plan to reteam and possibly set a dc date as pt is almost independent in all functional tasks. Yolette expressed concern for pt to be able to properly clean his home, prepare nutritious meals and also maintain the strength and stability pt has gained during therapies. SW suggested therapy can provide pt with home exercise programs and that Medicaid in home assistance could be an option for pt. SW to provide resources/referrals. SW to continue to follow to assist with safe dc planning.
[2017-12-15 19:50] VITALS: BP 101/65
--- NOTE | 2017-12-15 20:45 | NUR ---
AWAKENED AT 1950 FOR VITAL SIGNS. NO COMPLAINTS VOICED. RETURNED TO SLEEP. AWAKENED AGAIN AT 2044 TO TAKE MEDICATIONS. TOOK MEDICATIONS WHOLE A FEW AT A TIME WITH WATER. BOX LUNCH AND SHERBERT PROVIDED. VOIDED FELIBERTO URINE PER URINAL.
--- NOTE | 2017-12-16 05:27 | NUR ---
RESTED QUIETLY. NO COMPLAINTS VOICED. HOURLY ROUNDING IN PROGRESS.
[2017-12-16 08:00] VITALS: BP 98/60
--- NOTE | 2017-12-16 14:06 | NUR ---
LIZETT and Dr Marinelli met with pt to review team conference summary and plan for pt to return home alone tomorrow 12/17. Pt in agreement with plan. Pt met all rehab goals. LIZETT called and spoke with pt caregiver/friend Yolette and relayed information on dc planning. LIZETT provided referral/resources for in home assistance/housecleaning. Pt friend Yolette will be able to provide pt ride home tomorrow and plans to transport pt home anytime after 3pm. No other dc needs, pt has RW and cane and is not even needing an assistive device to walk at this time. No HH therapy covered under Medicaid, no need for HH nurse. Pt to be Mod I and move to the transitional living apt prior to dc.
[2017-12-16 16:40] VITALS: BP 98/60
--- NOTE | 2017-12-16 18:20 | NUR ---
AM ASSESSMENT AND VITAL SIGNS COMPLETED DOCUMENTED. PT HAS MADE GOOD PROGRESS TOWARD DISCHARGE GOALS AND HAS NOW BEEN MOVED TO THE TLA AND IS MODIFIED INDEPENDENT IN HIS ROOM. PT HAS BEEN INFORMED THAT HE CAN STILL CALL FOR ASSISTANCE WHEN HE NEEDS IT. PT WILL NOW BE USING THE TOILET INSTEAD OF THE TOILET. DISCHARGE ANTICIPATED THURSDAY.
[2017-12-16 19:20] VITALS: BP 117/74
--- NOTE | 2017-12-17 01:22 | NUR ---
ASSUMED CARE @ 1914-.AWAKE IN BED W/ SIDERAIL X1 ONLY.MOOD IND.NOW. BUT INSTRUCTED TO CALL FOR SBA FOR TOILETING IF GROGGY DURING NIGHT.ACCUCHECK @ .ASYMPTOMATIC.HS SNACKS TAKEN.REPEAT ACCUCHECK DONE 0-30 MINUTES AFTER EATING HS SNACKS.RESULT-127.25 UNITS LANTUS GIVEN SQ.TURNS SELF @ NIGHT. ON HOURLY ROUNDS.
[2017-12-17 02:54] VITALS: BP 98/60
--- NOTE | 2017-12-17 05:21 | NUR ---
SLEEPING SINCE 0.TOOK ALL TURKEY SANDWICH,PEACHES,TIFFANY CRACKERS-ONE PACKAGE & APPLE JUICE HS SNACKS.FOR DISCHARGE TODAY 11/20-THURSDAY AROUND 1500-PER PATIENT.
[2017-12-17] MEDS ORDERED: METFORMIN HCL500 MG PO (06:47)
[2017-12-17] MEDS ORDERED: LANTUS SUBQ (06:51)
[2017-12-17] MEDS ORDERED: HUMALOG100 UNIT/1 SUBQ (06:53)
[2017-12-17 07:30] VITALS: BP 101/70
[2017-12-17 14:34] VITALS: BP 98/60
[2017-12-17 15:00] VITALS: BP 98/60
--- NOTE | 2017-12-17 15:25 | NUR ---
ASSUMED CARE AT 0730. ALERT ORIENTED PLEASANT COOPERATIVE. HX OF ENCEPHALOPATHY. MODIFIED INDEPENDENT IN ROOM. PARTICIPATING IN THERAPIES. FEEDS SELF APPETITE GOOD TAKES MEDS WITHOUT DIFFICULTY.
--- NOTE | 2017-12-17 15:34 | NUR ---
DRESSINGS CHANGED AND PICTURES TAKEN OF L CHEST INCISIONS. MEDICATED FOR INCISIONAL PAIN LEFT CHEST WITH TYLENOL AFTER DRESSINGS CHANGED.UP AND ABOUT IN ROOM WITHOUT ANY SAFETY ISSUES. DISCHARGE INSTRUCTIONS WERE GIVEN AND PT. VERBALIZED UNDERSTANDING ALLOWED TIME FOR QUESTIONS. BELONGINGS ALL PACKED AND READY FOR DISCHARGE HOME AT 1500 WITH FRIENDS.
--- NOTE | 2017-12-30 13:47 | D ---
[address] [address] DISCHARGE SUMMARY Name: BHAVYA JONES Joy Room: [address] IN M.R.#: [id number] Admission: 12/03/17 Attend Phys: Mile Marinelli DO Discharge: 12/17/17 Date of : 70 Report #: [id number] THIS REPORT FOR: //name// CC: [facility] physician/PCP Mile Marinelli DATE OF SERVICE: 12/17/2017 DISCHARGE DIAGNOSES: Encephalopathy, aspiration pneumonia. DISCHARGE DISPOSITION: To the home setting. Follow with primary care physician within 1 week and Neurology within 1-2 months. Notifications for physician were given. Regular diet. Fall precautions and recommendations to avoid alcohol. MEDICATIONS: Reviewed and reconciled by myself and are available in the MAR. DISCHARGE PHYSICAL EXAMINATION: GENERAL: Alert and oriented, no apparent distress. VITAL SIGNS: Reviewed and are stable. HEENT: Head atraumatic, normocephalic. Pupils equal, round, reactive. ABDOMEN: Soft, nontender, nondistended. SKIN: Warm and dry. No rashes or lesions noted. <ELECTRONICALLY SIGNED> By: Mile Marinelli DO 12/30/17 1347 1331 [id number] Marinelli DO /nt
== END 2017-12-17 15:00 | disposition home health service (06) | DRG 70 ==
LOC: M.REH 15:39
PROVIDERS: Family Medicine; ADMIT Physical Medicine & Rehabilitation
PROC: 0JPT02Z Removal of Monitoring Device from Trunk Subcutaneous Tissue and Fascia, Open Approach (ICD-10-PCS; principal; 2017-12-05)
DX: G93.40 Encephalopathy, unspecified (principal); J69.0 Pneumonitis due to inhalation of food and vomit; K86.1 Other chronic pancreatitis; I69.954 Hemiplegia and hemiparesis following unspecified cerebrovascular disease affecting left non-dominant side; N17.9 Acute kidney failure, unspecified; E87.2 Acidosis; R65.10 Systemic inflammatory response syndrome (SIRS) of non-infectious origin without acute organ dysfunction; L03.313 Cellulitis of chest wall; T82.7XXA Infection and inflammatory reaction due to other cardiac and vascular devices, implants and grafts, initial encounter; E46 Unspecified protein-calorie malnutrition; Z68.1 Body mass index [BMI] 19.9 or less, adult; G62.1 Alcoholic polyneuropathy; R47.81 Slurred speech; E11.65 Type 2 diabetes mellitus with hyperglycemia; R29.810 Facial weakness; I25.10 Atherosclerotic heart disease of native coronary artery without angina pectoris; E78.5 Hyperlipidemia, unspecified; I10 Essential (primary) hypertension; F31.9 Bipolar disorder, unspecified; D64.9 Anemia, unspecified; F17.210 Nicotine dependence, cigarettes, uncomplicated; R26.9 Unspecified abnormalities of gait and mobility; R29.6 Repeated falls; E11.42 Type 2 diabetes mellitus with diabetic polyneuropathy; F10.20 Alcohol dependence, uncomplicated; Y90.9 Presence of alcohol in blood, level not specified; Y83.1 Surgical operation with implant of artificial internal device as the cause of abnormal reaction of the patient, or of later complication, without mention of misadventure at the time of the procedure; Z95.1 Presence of aortocoronary bypass graft; Z91.81 History of falling; Z82.49 Family history of ischemic heart disease and other diseases of the circulatory system; Y92.89 Other specified places as the place of occurrence of the external cause

== ENCOUNTER 2017-12-20 11:11 | Emergency (ER) | payer MEDICAID ==
[~2017-12-20] VITALS: Ht 170.2 cm; Wt 61.2 kg
[~2017-12-20 11:11] MED LIST changes: +HUMALOG100 UNIT/1 SUBQ; +LANTUS SUBQ; +METFORMIN HCL500 MG PO
[2017-12-20 12:03] VITALS: BP 109/74
== END 2017-12-20 12:04 | disposition home or self-care (01) ==
LOC: M.ERS 11:11
DX: Z48.01 Encounter for change or removal of surgical wound dressing (principal); F31.9 Bipolar disorder, unspecified; E11.9 Type 2 diabetes mellitus without complications; F17.210 Nicotine dependence, cigarettes, uncomplicated

== ENCOUNTER 2017-12-28 12:12 | Emergency (ER) | payer MEDICAID ==
[~2017-12-28] VITALS: Ht 170.2 cm; Wt 54.4 kg
[2017-12-28 13:37] VITALS: BP 129/92
== END 2017-12-28 13:38 | disposition home or self-care (01) ==
LOC: M.ERS 12:12
DX: Z48.01 Encounter for change or removal of surgical wound dressing (principal); F31.9 Bipolar disorder, unspecified; E11.9 Type 2 diabetes mellitus without complications; F17.210 Nicotine dependence, cigarettes, uncomplicated; Z86.73 Personal history of transient ischemic attack (TIA), and cerebral infarction without residual deficits

== ENCOUNTER 2018-03-09 16:06 | Inpatient (IN) | payer MEDICAID ==
[~2018-03-09] VITALS: Ht 170.2 cm; Wt 59.9 kg
--- NOTE | ~2018-03-09 | PROC ---
[address] [address] PROCEDURE REPORT Name: BHAVYA JONES Room: [address] IN ..#: [id number] Admission: 03/09/18 Attend Phys: Rosa Elena Upton MD Discharge: 03/13/18 Date of : 70 Report #: [id number] THIS REPORT FOR: //name// For GI report, please see Provation report in Perceptive 7 content. By: 1232Medical Records Staff YIN /ADA
[2018-03-09 16:16] VITALS: BP 144/84
[2018-03-09] MEDS ORDERED: PROPRANOLOL 1010 MG PO (16:20)
[2018-03-09] MEDS ORDERED: PRINIVIL20 MG PO (16:22)
[2018-03-09] MEDS ORDERED: ASPIR 8181 MG PO (16:22)
[2018-03-09] MEDS ORDERED: ATORVASTATIN CA40 MG PO (16:22)
[2018-03-09] MEDS ORDERED: AMITRIPTYLINE100 MG PO (16:22)
[2018-03-09 16:43] LABS: ABSOLUTE BASOPHILS 0.1 thou/uL (0.0-0.2); ABSOLUTE EOSINOPHILS 0.1 thou/uL (0.0-0.7); ABSOLUTE LYMPHOCYTES 4.7 thou/uL (0.8-5.3); ABSOLUTE MONOCYTES 0.5 thou/uL (0.0-1.2); BASOPHILS 0.9 %; EOSINOPHILS 1.4 %; HEMOGLOBIN 13.1 gm/dL (14.0-18.0); LYMPHOCYTES 49.4 %; MCH 31.1 pg (26.0-34.0); MCHC 33.5 g/dL (28.0-37.0); MONOCYTES 5.5 %; NUCLEATED RBCS 0 /100WBC; PLATELET COUNT* 396 thou/uL (150-400); POLYS 42.8 %; RDW-CV 14.1 % (10.5-14.5); WBC 9.4 thou/uL (4.0-11.0)
[2018-03-09 16:48] LABS: ANION GAP 8 mmol/L (7-16); BUN 5 mg/dL (7-18); CALCIUM 8.8 mg/dL (8.5-10.1); CHLORIDE 103 mmol/L (98-107); CO2 31 mmol/L (21-32); CREATININE 0.7 mg/dL (0.6-1.3); GLUCOSE 232 mg/dL (70-99); SODIUM 142 mmol/L (136-145)
[2018-03-09 16:53] LABS: BE -0.3 mmol/L (-2 to +3); HCO3 25.4 mmol/L (22.0-26.0); PCO2 45.6 mmHg (35.0-45.0); PO2 64.9 mmHg (75.0-100.0); pH 7.364 (7.340-7.450)
[2018-03-09 16:57] LABS: ALCOHOL 338 mg/dL (<10); SALICYLATE 3.4 mg/dL (2.8-20.0)
[2018-03-09 16:58] LABS: ACETAMINOPHEN < 2 ug/mL (10-30)
[2018-03-09 16:59] LABS: ALBUMIN 3.7 g/dL (3.4-5.0); ALKALINE PHOSPHATASE 73 U/L (46-116); LIPASE 53 U/L (73-393); NT-PRO BRAIN NAT PEPTIDE 122 pg/mL (<300); SGOT 56 U/L (15-37); SGPT 49 U/L (30-65); TOTAL BILIRUBIN 0.1 mg/dL (<0.1-1.0); TOTAL PROTEIN 7.4 g/dL (6.4-8.2); TROPONIN-I LEVEL <0.06 ng/mL (<0.06)
[2018-03-09 17:16] LABS: URINE BILIRUBIN NEGATIVE (Negative); URINE BLOOD NEGATIVE (Negative); URINE CLARITY CLEAR; URINE COLOR YELLOW; URINE GLUCOSE-RANDOM 3+ (Negative); URINE KETONES NEGATIVE (Negative); URINE LEUKOCYTES-REFLEX NEGATIVE (Negative); URINE NITRITE-REFLEX NEGATIVE (Negative); URINE PROTEIN NEGATIVE (Negative); URINE UROBILINOGEN 0.2 E.U./dl (0.2-1.0)
[2018-03-09 17:23] LABS: AMP/METHAMP Negative (Negative); BARBITURATES Negative (Negative); BENZODIAZEPINES Negative (Negative); COCAINE Negative (Negative); METHADONE Negative (Negative); OPIATES Negative (Negative); PCP Negative (Negative); THC Negative (Negative)
[2018-03-09 18:01] VITALS: BP 135/85
[2018-03-09 18:23] VITALS: BP 148/99
--- NOTE | 2018-03-09 18:31 | NUR ---
PT ADMITTED TO UNIT AROUND 182 PT IS ALERT AND ORIENTED X 3-4 PT SPEECH IS SLOW PT SMELLS OF SMOKE PT IS UNSTEADY PT IS A FALL RISK BED ALARM IS ON, PT IS SR-ST ON THE MONITOR, PT DENIES PAIN OR SOA ON 15L NON REBREATHER, PT LIVES ALONE PARTENTS CHECK ON PT, WILL CONTINUE TO MONITOR
[2018-03-09 20:00] VITALS: BP 139/81
[2018-03-09 22:51] LABS: BE 0.9 mmol/L (-2 to +3); HCO3 26.3 mmol/L (22.0-26.0); PCO2 45.2 mmHg (35.0-45.0); pH 7.383 (7.340-7.450)
[2018-03-10] VITALS (7 sets, daily range): BP systolic 105–148; BP diastolic 61–96
[2018-03-10 00:55] LABS: HEMATOCRIT 30.1 % (42.0-52.0); MCH 30.4 pg (26.0-34.0); MCHC 32.8 g/dL (28.0-37.0); MCV 92.5 fL (80.0-100.0); MPV 6.6 fl. (7.2-11.1); RBC 3.25 mil/uL (4.50-6.00); RDW-CV 14.1 % (10.5-14.5)
[2018-03-10 01:04] LABS: HEMOGLOBIN 9.9 gm/dL (14.0-18.0)
[2018-03-10 01:29] LABS: ALBUMIN 2.8 g/dL (3.4-5.0); CALCIUM 7.8 mg/dL (8.5-10.1); CREATININE 0.6 mg/dL (0.6-1.3); MAGNESIUM 1.2 mg/dL (1.8-2.4); POTASSIUM 4.2 mmol/L (3.5-5.1); TOTAL BILIRUBIN 0.1 mg/dL (<0.1-1.0); TOTAL PROTEIN 5.1 g/dL (6.4-8.2)
[2018-03-10 06:07] LABS: BE 0.3 mmol/L (-2 to +3); HCO3 25.1 mmol/L (22.0-26.0); PCO2 41.1 mmHg (35.0-45.0); PO2 84.1 mmHg (75.0-100.0); pH 7.403 (7.340-7.450)
--- NOTE | 2018-03-10 06:59 | NUR ---
ASSUMED PT CARE @ 1930. COMPLETED ADMISSION ASSESSMENT. PT A+O X4. MONITORED PT FOR CIWA THROUGH NIGHT. DID NOT SCORE AND PT DENIED FOR SYMPTOMS. REPORTED LAST DRINK 5AM 03/09/18. NOTIFIED RESP OF PTS CRITICAL ABG DURING SHIFT. RETURNED TO NORMAL PARAMETERS AFTER O2 DECREASED TO 4L. PT DENIES ANY CONCERNS AT THIS TIME. WILL CONTINUE TO MONITOR FOR SAFETY. CALL LIGHT IN REACH SIDERAILS UP X2.
--- NOTE | 2018-03-10 10:21 | NUR ---
Pt is A&O. Resides at home alone. Pt states independent with ADLs, continues to cook and clean, Pt states that he lost his license so he no longer drives. Supportive friends. Pt has a cane that he uses for mobility. No hx of HH or SNF. Goal is home. Spoke with Dr Upton, requested that CM contact the fire dept to determine if they are able to go to Pt's home to test for CO2 and to see if they can provide Pt with a CO2 detector. CM to contact fire dept. Anticipate dc tomorrow. Following.
--- NOTE | 2018-03-10 10:58 | NUR ---
ASSUMED CARE OF PT AT 0730. PT RESTING IN BED WAITING FOR BREAKFAST. PT A&0X3-4, FORGETFUL AND CONFUSED AT TIMES. PT STATES HE IS FEELING MUCH BETTER TODAY. PT TRACING ST ON THE SENIOR DIRECTOR INSIGHT. ON 3L NC SAT 97%, PT TITRATED TO 2L NC SAT UPPER 90'S. PER DR HANDLEY, PT TO REMAIN ON CONTINUOUS OXYGEN FOR 24 HOURS DUE TO ELEVATED C02 LEVEL ON ADMIT. CIWA COMPLETED. REFER TO CHARTING. PT UP WITH 1 ASSIST AND CANE TO BATHROOM. IVF. PT GOAL FOR TODAY IS TO MONITOR ORIENTATION, REMAIN ON OXYGEN, REPLACE MAGNESIUM PER ELECTROLYTE PROTOCOL AND INCREASE ACTIVITY. AM ASSESSMENT CHARTED. MEDICATIONS PER JUN. PT REPOSITIONS SELF. HOURLY ROUNDING OBSERVED. BED IN LOW POSITION. BED ALARM IN PLACE . FALL PRECAUTIONS IN PLACE. CALL LIGHT WITHIN REACH. WILL CONTINUE PLAN OF CARE.
--- NOTE | 2018-03-10 14:24 | EKG ---
[place] [address] ELECTROCARDIOGRAM REPORT Name: JONESBHAVYA Room: [address] ADM IN [facility].#: [id number] Admission: 03/09/18 Attend Phys: Rosa Elena Upton MD Discharge: Date of : 70 Report #: [id number] THIS REPORT FOR: //name// [facility] ED Test Date: 2018-03-09 Test Time: 16:37:07 Pat Name: BHAVYA JONES Department: Room: [facility] Gender: Spool Winder: Kera BROTHERS : 1970 Requested By: Sina Edward Order Number: [id number] MD: Jason Thakur Measurements Intervals [place] Rate: 100 P: 53 DE: 163 QRS: -84 QRSD: 100 T: 60 QT: 355 QTc: 458 Interpretive Statements Sinus tachycardia Probable left atrial enlargement Inferior infarct, old Anterior infarct, old Compared to ECG 12/02/2017 21:20:35 Sinus rhythm no longer present Myocardial infarct finding still present Electronically Signed On 03-10-2018 14:24:39 HARVEST FIELD TICKETER by Jason Thakur [email or web address] <ELECTRONICALLY SIGNED> By: Jason Thakur MD, FACC 03/10/18 1424 1637 1637 Jason Thakur MD, LOCATED WITHIN [facility] /EPI
--- NOTE | 2018-03-10 16:00 | NUR ---
RECIEVED REPORT AT ASSUMED PT. CARE AT APPROX. 1545. PT UP IN CHAIR, A/OX4, DENIES CURRENT PAIN/NEEDS. ASSESSMENT REVIEWED WITH NO NOTED CHANGES. CALL LIGHT IN REACH, WILL CONTINUE WITH PLAN OF CARE.
[2018-03-11 04:31] VITALS: BP 128/69
--- NOTE | 2018-03-11 06:40 | NUR ---
ASSUMED PT CARE @ 1930. SEE MAR AND CHARTING. CONTINUED MAGNESIUM REPLACEMENT PROTOCOL. VSS. FALL PRECAUTIONS IN PLACE. HOURLY ROUNDING FOR SAFETY.
--- NOTE | 2018-03-11 07:59 | NUR ---
ASSUMED PT. CARE AND RECEIVED REPORT AT 0730. PT A/OX4, VSS, MONITOR ON TRACING SR. PT DENIES CURRENT PAIN/SOB. ON 2LNC @ 99%. PT. C/O COUGH/CONGESTION THIS MORNING. FULL ASSESSMENT COMPLETED, REFER TO CHARTING. CWAL OF 1 FOR SLIGHT TREMOR. NS INFUSING @ 80ML/HR. DR. WICK INTO SEE, HEMOGLOBIN TRENDING DOWN THIS MORNING. PLAN TO WATCH NEXT LAB TREND TODAY AND CONSULT GI. PT. AWARE OF PLAN AND AGREEABLE. CALL LIGHT IN REACH, FALL PRECAUTIONS IN PLACE. WILL CONTINUE WITH PLAN OF CARE.
[2018-03-11 08:00] VITALS: BP 134/84
[2018-03-11 12:00] VITALS: BP 127/88
[2018-03-11 12:03] LABS: HEMATOCRIT 30.8 % (42.0-52.0); HEMOGLOBIN 10.2 gm/dL (14.0-18.0); MCHC 33.3 g/dL (28.0-37.0); MCV 93.2 fL (80.0-100.0); MPV 7.8 fl. (7.2-11.1); RBC 3.3 mil/uL (4.50-6.00); RDW-CV 14.2 % (10.5-14.5); WBC 8.7 thou/uL (4.0-11.0)
[2018-03-11 16:00] VITALS: BP 148/98
[2018-03-11 21:02] VITALS: BP 132/87
[2018-03-12] VITALS (8 sets, daily range): BP systolic 107–143; BP diastolic 71–90
--- NOTE | 2018-03-12 07:41 | NUR ---
PT IS ABLE TO COMMUNICATE HIS NEEDS TO STAFF EFFECTIVELY. HE HAS DENIED THE NEED FOR PAIN MEDICATION UP TO THIS TIME. HE HAS BEEN NPO SINCE MIDNIGHT FOR A PROBABLE EGD AND COLONOSCOPY LATER TODAY. STOOL IS RUNNING LIQUID BUT DOES HAVE SOME PARTICULATE MATTER IN IT.
--- NOTE | 2018-03-12 08:45 | NUR ---
ASSSUMED CARE OF PT THIS AM AROUND 0715- CUSTOMER SERVICE ADVISOR IN PLACE ORDERED, TRACING ST- UPON ASSESSMENT PT NOTED TO BE RESTING IN BED, WATCHING TV- PT NOTED TO BE GROGGY THIS AM, NODDING IN AND OUT- PT A&O X4- CONTINENT OF BOWEL AND BLADDER- SBA WITH TRANSFERS FOR SAFETY- DIMINISHED LUNG SOUNDS, RESP EVEN AND UN-LABORED- VSS, O2 SAT 91% ON RA- ABDOMEN SOFT/ROUND/NON-TENDER, BS X4 QUADS-PT NOTED TO HAVE BM EARLY THIS AM- IV NOTED TO LEFT AC INTACT, IVF INFUSSING PRESCIBED- MG CURRENLTY BEING REPLACED PER PROTOCOL, REDRAW TO FOLLOW- PT CURRNELTY NPO FOR PLANNED EGD/COLONOSCOPY THIS SHIF, CONCENT SIGNED AND ON CHART- PT DENIES ANY C/O PAIN/DISCOMFORT AT THIS TIME-CALL LIGHT AND PERSONAL BELONGINGS WITH IN REACH- HOURLY ROUNDS IN PLACE R/T SAFETY/NEEDS- ALL NEEDS MET AT THIS TIME-WCTM
--- NOTE | 2018-03-12 13:06 | NUR ---
CM updated Pt's nurse that at pr, Pt will need to call 911 to arrange for the fire dept to come and check his home for carbon monoxide. Pt scheduled to have an EGD/colon today.
--- NOTE | 2018-03-12 17:14 | NUR ---
PT CURRENLTY RESTING IN BED, WATCHING TV; NOTED TO BE UP TO BED SIDE CHAIR TODAY AND TOLERATING WELL- PT OFF UNIT THIS SHIFT FOR SCHEDULED EGD/COLONOSCOPY- RESULTS NOTED SMALL HIATAL HERNIA, GRADE D ESOPHAGITIS; ORDERS NOTED FOR PROTONIX 40MG BID X 3 NONTHS WITH F/U PER GI- RESULTS COMMUNICATED TO THIS SHIFT, POSSIBLE D/C IN AM- DIET ADVANCED, PT TOLERATING WELL WITH NO COMPLAINTS- IV CONTINUED TO LEFT AC, IVF INFUSSING PRESCIBED- MG REPLACED THIS SHIFT WITH REDRAW NOT WNL AT 2.3- BS MONITORED ORDERED, SCHEDULED AND SSI INDICATED THIS SHIFT- PT MAKES NEEDS KNOWN- ALL NEEDS MET AT THIS TIME-WCTM
[2018-03-13 01:27] VITALS: BP 106/74
[2018-03-13 04:00] VITALS: BP 116/74
--- NOTE | 2018-03-13 06:46 | NUR ---
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
[2018-03-13 08:30] VITALS: BP 100/75
--- NOTE | 2018-03-13 08:30 | NUR ---
ASSUMED PT. CARE AND RECEIVED REPORT AT 0730. PT A/OX4, VSS, MONITOR ON TRACING SR WITH PVC. PT. ON RA @ 97%. DENIES CURRENT PAIN/SOB. ONLY COMPLAINT IS COUGH. FULL ASSESSMENT COMPLETED, REFER TO CHARTING. ANTICIPATE DC TODAY. CALL LIGHT IN REACH, WILL CONTINUE WITH PLAN OF CARE.
[2018-03-13] MEDS ORDERED: PROTONIX40 M1 PO (11:38)
[2018-03-13] MEDS ORDERED: FLONASE 0.05%50 MCG NASAL (11:39)
[2018-03-13 11:40] VITALS: BP 100/75
--- NOTE | 2018-03-13 12:48 | CON ---
[address] [address] CONSULTATION Name: BHAVYA JONES Joy Room: [address] IN .R.#: [id number] Admission: 03/09/18 Attend Phys: Rosa Elena Upton MD Discharge: Date of : 70 Report #: [id number] THIS REPORT FOR: //name// CC: Vish Upton HISTORY OF PRESENT ILLNESS: This is a pleasant 47-year-old gentleman with past medical history of hypertension, diabetes, alcohol abuse and depression, who presented to the hospital with loss of consciousness and somnolence, which was found to be due to carbon monoxide poisoning. The patient has a wood stove indoors and was found passed out next to it and was brought to the hospital. The patient denies any abdominal pain, nausea, vomiting, diarrhea, dizziness, headaches or fevers or chills. The GI Service has been consulted for evaluation of a drop in hemoglobin from baseline of 13 to 9. PAST MEDICAL HISTORY: As mentioned above, the patient has history of hypertension, diabetes, depression, and alcohol abuse. PAST SURGICAL HISTORY: The patient had a cardiac bypass in the past. SOCIAL HISTORY: The patient uses alcohol daily and reports history of smoking, but he quit about a year back. He denies any recreational drug use. FAMILY HISTORY: Reviewed and not significant. REVIEW OF SYSTEMS: A comprehensive 10-point review of systems was performed and is negative at this time. PHYSICAL EXAMINATION: VITAL SIGNS: Temperature 36.6, pulse rate 85, respirations 16, blood pressure 134/84. GENERAL: The patient is alert, awake, oriented x 3. HEENT: Pupils are equal, round, reactive to light and accommodation. Mucous membranes are moist. NECK: There is no congestion. LUNGS: Clear to auscultation bilaterally. CARDIOVASCULAR: Rate and rhythm regular, S1, S2 present. ABDOMEN: Soft. There is no distention, guarding or rigidity. EXTREMITIES: Warm, well perfused. There is no edema. SKIN: Warm and dry. LABORATORY DATA: Hemoglobin 9.9, hematocrit 30.1, WBC count 14.0, platelet count 301. Sodium 138, potassium 4.2, chloride 102, bicarbonate 28, BUN 8, creatinine 0.6, total bilirubin 0.1, AST 37, ALT 36, alkaline phosphatase 61. ASSESSMENT AND PLAN: This is a very pleasant 47-year-old male who presented with carbon monoxide poisoning and was subsequently found to have a 4 [place] [address] CONSULTATION Name: BHAVYA JONES Room: [address] IN [facility]#: [id number] Admission: 03/09/18 Attend Phys: Rosa Elena Upton MD Discharge: Date of : 70 Report #: [id number] in hemoglobin. There are no signs of overt gastrointestinal bleeding. The patient denies having an EGD or colonoscopy in the past. We would place the patient on clear liquid diet for now and then prep him in the evening. We will plan for an EGD and colonoscopy tomorrow. <ELECTRONICALLY SIGNED> By: Satish Gongora MD 03/13/18 1248 1152 [id number] Gongora MD /nt
--- NOTE | 2018-03-13 13:23 | NUR ---
DC ORDERS RECEIVED. IV AND MONITOR REMOVED. PT. GIVEN DC INSTRUCITONS, SCRIPTS AND CARENOTES. PT. INSTRUCTED TO CALL FIRE DEPT. UPON ARRIVAL HOME TO CHECK FOR CARBON MONOXIDE, STATES UNDERSTANDING. PT. LEFT VIA WHEELCHAIR TO RETURN HOME IN PERSONAL VEHICLE WITH FRIENDS. ALL BELONGINGS ACCOUNTED FOR.
== END 2018-03-13 13:33 | disposition home or self-care (01) | DRG 917 ==
LOC: M.ERS 16:06 → M.TBA-ER 17:35 → M.2W 17:38 → M.TBA-ER 17:38 → M.2W 18:08
PROVIDERS: Emergency Medicine; Internal Medicine Gastroenterology; ADMIT Internal Medicine
DX: T58.91XA Toxic effect of carbon monoxide from unspecified source, accidental (unintentional), initial encounter (principal); G92 Toxic encephalopathy; R65.10 Systemic inflammatory response syndrome (SIRS) of non-infectious origin without acute organ dysfunction; F31.9 Bipolar disorder, unspecified; E11.9 Type 2 diabetes mellitus without complications; F10.920 Alcohol use, unspecified with intoxication, uncomplicated; I25.10 Atherosclerotic heart disease of native coronary artery without angina pectoris; D64.9 Anemia, unspecified; K21.0 Gastro-esophageal reflux disease with esophagitis; K44.9 Diaphragmatic hernia without obstruction or gangrene; Z86.73 Personal history of transient ischemic attack (TIA), and cerebral infarction without residual deficits; Z95.1 Presence of aortocoronary bypass graft; Z87.891 Personal history of nicotine dependence; Z79.82 Long term (current) use of aspirin; Z79.899 Other long term (current) drug therapy; Z23 Encounter for immunization

== ENCOUNTER 2018-03-24 15:51 | Inpatient (IN) | payer MEDICAID ==
[~2018-03-24] VITALS: Ht 170.2 cm; Wt 63.5 kg
[~2018-03-24 15:51] MED LIST changes: +AMITRIPTYLINE100 MG PO; +ATORVASTATIN CA40 MG PO; +FLONASE 0.05%50 MCG NASAL; +PRINIVIL20 MG PO; +PROPRANOLOL 1010 MG PO; +PROTONIX40 M1 PO; -TRAZODONE 150150 M1 PO; +TRAZODONE HCL100 MG PO
[2018-03-24 15:58] VITALS: BP 87/66
[2018-03-24 16:24] LABS: ABSOLUTE BASOPHILS 0.1 thou/uL (0.0-0.2); ABSOLUTE EOSINOPHILS 0.1 thou/uL (0.0-0.7); ABSOLUTE LYMPHOCYTES 3.2 thou/uL (0.8-5.3); ABSOLUTE MONOCYTES 0.7 thou/uL (0.0-1.2); ABSOLUTE NEUTROPHILS 7.2 thou/uL (1.6-8.1); BASOPHILS 0.8 %; EOSINOPHILS 0.6 %; HEMATOCRIT 35.6 % (42.0-52.0); HEMOGLOBIN 12.3 gm/dL (14.0-18.0); LYMPHOCYTES 28.5 %; MCH 31.6 pg (26.0-34.0); MCHC 34.4 g/dL (28.0-37.0); MONOCYTES 6.3 %; MPV 6.5 fl. (7.2-11.1); NUCLEATED RBCS 0 /100WBC; PLATELET COUNT* 350 thou/uL (150-400); POLYS 63.8 %; RBC 3.88 mil/uL (4.50-6.00); RDW-CV 15.1 % (10.5-14.5); WBC 11.3 thou/uL (4.0-11.0)
[2018-03-24 16:35] LABS: APTT 30.5 Seconds (25.0-31.3)
[2018-03-24 16:38] LABS: ANION GAP 8 mmol/L (7-16); BUN 9 mg/dL (7-18); CALCIUM 9.4 mg/dL (8.5-10.1); CHLORIDE 99 mmol/L (98-107); CO2 32 mmol/L (21-32); CREATININE 1.1 mg/dL (0.6-1.3); GLUCOSE 31 mg/dL (70-99); POTASSIUM 3.4 mmol/L (3.5-5.1); SODIUM 139 mmol/L (136-145)
[2018-03-24 16:44] LABS: ALBUMIN 3.4 g/dL (3.4-5.0); ALKALINE PHOSPHATASE 78 U/L (46-116); LIPASE 47 U/L (73-393); NT-PRO BRAIN NAT PEPTIDE 140 pg/mL (<300); SGPT 26 U/L (30-65); TOTAL BILIRUBIN 0.3 mg/dL (<0.1-1.0); TOTAL PROTEIN 7.1 g/dL (6.4-8.2); TROPONIN-I LEVEL <0.06 ng/mL (<0.06)
[2018-03-24 19:44] VITALS: BP 99/65
[2018-03-24 20:20] VITALS: BP 100/65
[2018-03-25] VITALS: BP 108/64
--- NOTE | 2018-03-25 02:05 | NUR ---
PT ADMIT TO ROOM 220. ALERT ORIENTED. UP WITH ASSIST OF ONE. FALL PRECAUTIONS IN PLACE. PT REQUESTING ANXIETY AND PAIN MEDICATIONS. DR MENA NOTIFIED. XANAX ORDERED. PROCEEDING WITH CAUTION BC PT HAS HAD LOW BLOOD PRESSURES. TELEMETRY SHOWS SR. PT SLEEPING AT THIS TIME.
[2018-03-25 04:00] VITALS: BP 104/72
[2018-03-25 04:51] LABS: ABSOLUTE BASOPHILS 0.1 thou/uL (0.0-0.2); ABSOLUTE EOSINOPHILS 0.1 thou/uL (0.0-0.7); ABSOLUTE LYMPHOCYTES 3.3 thou/uL (0.8-5.3); ABSOLUTE MONOCYTES 0.5 thou/uL (0.0-1.2); BASOPHILS 0.8 %; EOSINOPHILS 1.3 %; HEMATOCRIT 30.5 % (42.0-52.0); LYMPHOCYTES 41.3 %; MCHC 33.6 g/dL (28.0-37.0); MCV 92.3 fL (80.0-100.0); MONOCYTES 6.9 %; MPV 7.1 fl. (7.2-11.1); NUCLEATED RBCS 0 /100WBC; POLYS 49.7 %; RDW-CV 14.8 % (10.5-14.5)
[2018-03-25 05:01] LABS: CALCIUM 8.3 mg/dL (8.5-10.1); CREATININE 0.8 mg/dL (0.6-1.3); POTASSIUM 3.6 mmol/L (3.5-5.1)
[2018-03-25 05:02] LABS: HEMOGLOBIN 10.2 gm/dL (14.0-18.0); PLATELET COUNT* 272 thou/uL (150-400)
[2018-03-25 08:00] VITALS: BP 90/58
--- NOTE | 2018-03-25 09:37 | NUR ---
ASSUMED PT CARE AT 0730, FULL ASSESMENT DONE CHARTED. PT A/O X4, PT DENIES SOA, ON 2L O2, TAKEN OFF SATS BETWEEN 90-96%, PT C/O PAIN 6/10 IN HIP BILAT, STATES HE DOES NOT WANT TO TAKE TYLENOL, PT WANTS LIDOCAINE PATCH ORDERED. PTS V SS, SR ON THE MONITOR. USES CALL LIGHT APPROPRIALTY. UP WITH ASSIST TO SHOWER. WILL CONTINUE WITH PLAN OF CARE.
--- NOTE | 2018-03-25 10:55 | EKG ---
[place] [address] ELECTROCARDIOGRAM REPORT Name: JONESBHAVYA Room: [address] ADM IN [facility]#: [id number] Admission: 03/24/18 Attend Phys: Ghulam Hobbs MD Discharge: Date of : 70 Report #: [id number] THIS REPORT FOR: //name// [facility] ED Test Date: 2018-03-24 Test Time: 16:19:48 Pat Name: BHAVYA JONES Department: Room: [facility] Gender: M Nail Puller: Hugo NAVARRETE : 1970 Requested By: Lexi Layne Order Number: [id number] MD: Jason Thakur Measurements Intervals [place] Rate: 109 P: 47 ME: 149 QRS: 265 QRSD: 94 T: 94 QT: 317 QTc: 427 Interpretive Statements Sinus tachycardia Probable left atrial enlargement Inferior infarct, old anterior infarct, old Baseline wander in lead(s) V2,V3,V6 Compared to ECG 03/09/2018 16:37:07 Myocardial infarct finding still present Electronically Signed On 03-25-2018 10:55:35 SHEET ROCK APPLIER by Jason Thakur [email or web address] <ELECTRONICALLY SIGNED> By: Jason Thakur MD, [facility] 03/25/18 1055 1619 1619 Jason Thakur MD, [facility] /EPI
[2018-03-25 11:00] VITALS: BP 101/66
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
--- NOTE | 2018-03-25 15:07 | NUR ---
Pt known to this CM from previous hospital stay. Pt is A&O. Resides at home alone. Pt states that he was able to get his fireplace fix and received a CO2 detector. Pt uses a cane for mobility. Hx of HH with [facility] [phone]. Supportive friends. No hx of SNF. Goal is home at dc with HH. Following.
[2018-03-25 16:00] VITALS: BP 112/70
[2018-03-25 19:08] LABS: GLYCOHEMOGLOBIN (HGB A1C) 7.4 % (4.8-5.6)
[2018-03-25 20:36] VITALS: BP 123/84
[2018-03-26] VITALS: BP 114/83
[2018-03-26 04:00] VITALS: BP 115/86
[2018-03-26 04:44] LABS: ABSOLUTE EOSINOPHILS 0.1 thou/uL (0.0-0.7); ABSOLUTE LYMPHOCYTES 3.3 thou/uL (0.8-5.3); ABSOLUTE MONOCYTES 0.6 thou/uL (0.0-1.2); BASOPHILS 0.5 %; EOSINOPHILS 1.4 %; HEMOGLOBIN 10.5 gm/dL (14.0-18.0); LYMPHOCYTES 36.5 %; MCH 31.1 pg (26.0-34.0); MCHC 33.9 g/dL (28.0-37.0); MONOCYTES 6.3 %; MPV 7.4 fl. (7.2-11.1); NUCLEATED RBCS 0 /100WBC; PLATELET COUNT* 275 thou/uL (150-400); POLYS 55.3 %; RBC 3.37 mil/uL (4.50-6.00); RDW-CV 14.6 % (10.5-14.5); WBC 9.1 thou/uL (4.0-11.0)
[2018-03-26 05:13] LABS: CALCIUM 8.8 mg/dL (8.5-10.1); CREATININE 0.7 mg/dL (0.6-1.3); MAGNESIUM 1.8 mg/dL (1.8-2.4); POTASSIUM 3.6 mmol/L (3.5-5.1)
--- NOTE | 2018-03-26 06:03 | NUR ---
PATIENT PROGRESSING TOWARDS GOALS: BP AND HR REMAINS STABLE THROUGHOUT SHIFT. PAIN MANAGED WITH LIDOCAINE PATCH AND ICE PACK TO HIP. PATIENT HAS SLEPT THROUGHOUT A MAJORITY OF THE SHIFT. HOURLY ROUNDING OBSERVED. CALL LIGHT WITHIN REACH
[2018-03-26 08:00] VITALS: BP 130/76
[2018-03-26 08:54] VITALS: BP 115/86
[2018-03-26 11:46] VITALS: BP 126/85
--- NOTE | 2018-03-26 14:08 | NUR ---
Pt discharging to home today, faxed PETR orders to [facility] [phone], p:[phone]
== END 2018-03-26 13:59 | disposition home health service (06) | DRG 316 ==
LOC: M.ERS 15:51 → M.2W 18:18 → M.TBA-ER 18:18 → M.2W 20:15
PROVIDERS: Personal Emergency Response Attendant; ADMIT Internal Medicine
DX: I95.9 Hypotension, unspecified (principal); I25.10 Atherosclerotic heart disease of native coronary artery without angina pectoris; E11.649 Type 2 diabetes mellitus with hypoglycemia without coma; E78.5 Hyperlipidemia, unspecified; F41.9 Anxiety disorder, unspecified; F31.9 Bipolar disorder, unspecified; F17.210 Nicotine dependence, cigarettes, uncomplicated; F10.20 Alcohol dependence, uncomplicated; Z95.1 Presence of aortocoronary bypass graft; Z86.73 Personal history of transient ischemic attack (TIA), and cerebral infarction without residual deficits; Z85.72 Personal history of non-Hodgkin lymphomas; Z87.81 Personal history of (healed) traumatic fracture; Z79.4 Long term (current) use of insulin; Z79.82 Long term (current) use of aspirin; Z79.899 Other long term (current) drug therapy; Z82.49 Family history of ischemic heart disease and other diseases of the circulatory system; Z28.21 Immunization not carried out because of patient refusal

== ENCOUNTER 2018-04-29 21:21 | Observation (INO) | payer MEDICAID ==
[~2018-04-29] VITALS: Ht 170.2 cm; Wt 59.0 kg
[2018-04-29 21:21] VITALS: BP 97/70
[2018-04-29 22:03] LABS: ABSOLUTE EOSINOPHILS 0.1 thou/uL (0.0-0.7); ABSOLUTE LYMPHOCYTES 4.1 thou/uL (0.8-5.3); ABSOLUTE MONOCYTES 0.4 thou/uL (0.0-1.2); ABSOLUTE NEUTROPHILS 3.2 thou/uL (1.6-8.1); BASOPHILS 0.6 %; EOSINOPHILS 1.2 %; HEMATOCRIT 32.2 % (42.0-52.0); LYMPHOCYTES 52.2 %; MCH 32.2 pg (26.0-34.0); MCV 94.7 fL (80.0-100.0); MONOCYTES 5.5 %; NUCLEATED RBCS 0 /100WBC; PLATELET COUNT* 160 thou/uL (150-400); POLYS 40.5 %; RBC 3.41 mil/uL (4.50-6.00); RDW-CV 16.3 % (10.5-14.5)
[2018-04-29 22:12] LABS: ANION GAP 6 mmol/L (7-16); BUN 8 mg/dL (7-18); CALCIUM 7.8 mg/dL (8.5-10.1); CHLORIDE 103 mmol/L (98-107); CO2 30 mmol/L (21-32); CREATININE 0.8 mg/dL (0.6-1.3); GLUCOSE 96 mg/dL (70-99); POTASSIUM 4.1 mmol/L (3.5-5.1); SODIUM 139 mmol/L (136-145)
[2018-04-29 22:22] LABS: ALBUMIN 3.2 g/dL (3.4-5.0); ALKALINE PHOSPHATASE 52 U/L (46-116); LIPASE 39 U/L (73-393); NT-PRO BRAIN NAT PEPTIDE 46 pg/mL (<300); SGOT 21 U/L (15-37); SGPT 26 U/L (30-65); TOTAL BILIRUBIN 0.1 mg/dL (<0.1-1.0); TROPONIN-I LEVEL <0.06 ng/mL (<0.06)
--- NOTE | 2018-04-29 22:50 | NUR ---
PATIENT REQUESTING FOOD. PATIENT IS AWAKE AND ALERT HAS TAKEN PO FLUIDS WITHOUT DIFFICULTY. PATIENT WAS PROVIDED WITH FOOD AND PO FLUIDS.
[2018-04-30] VITALS (8 sets, daily range): BP systolic 84–138; BP diastolic 58–88
--- NOTE | 2018-04-30 06:06 | NUR ---
ASSUMED PT CARE AT 0330. PT IS A&OX4, BROUGHT UP FROM ED. NSR ON THE MONITOR, ON 2L NC SATTING MID TO HIGH 90'S. CIWA CHARTED. ADMISSION ASSESSMENT COMPLETED CHARTED. PT HAS ABRASIONS TO BILAT. KNEES. PICTURES TAKEN AND PLACED IN CHART. BED IN LOW POSITION, CALL LIGHT IN REACH, BED ALARM ON, YELLOW ARM BAND AND SOCKS IN PLACE. HOURLY ROUNDING COMPLETED FOR PT SAFETY.
[2018-04-30 06:10] LABS: URINE BILIRUBIN NEGATIVE (Negative); URINE BLOOD NEGATIVE (Negative); URINE CLARITY CLEAR; URINE COLOR YELLOW; URINE GLUCOSE-RANDOM NEGATIVE (Negative); URINE KETONES NEGATIVE (Negative); URINE LEUKOCYTES-REFLEX NEGATIVE (Negative); URINE NITRITE-REFLEX NEGATIVE (Negative); URINE PROTEIN NEGATIVE (Negative); URINE UROBILINOGEN 0.2 E.U./dl (0.2-1.0)
[2018-04-30 06:17] LABS: AMP/METHAMP Negative (Negative); BARBITURATES Negative (Negative); BENZODIAZEPINES Negative (Negative); COCAINE Negative (Negative); METHADONE Negative (Negative); OPIATES Negative (Negative); PCP Negative (Negative); THC Negative (Negative)
[2018-04-30 07:39] LABS: PROTIME 9.9 Seconds (9.20-11.50)
[2018-04-30 07:42] LABS: CALCIUM 7.2 mg/dL (8.5-10.1); MAGNESIUM 1.4 mg/dL (1.8-2.4); PHOSPHORUS* 2.2 mg/dL (2.5-4.9)
--- NOTE | 2018-04-30 10:51 | EKG ---
[place] [address] ELECTROCARDIOGRAM REPORT Name: BHAVYA JONES Room: [address] M.R.#: [id number] Admission: 04/30/18 Attend Phys: Tu Luna Discharge: Date of : 70 Report #: [id number] THIS REPORT FOR: //name// [facility] ED Test Date: 2018-04-29 Test Time: 21:25:21 Pat Name: BHAVYA JONES Department: Room: [facility] Gender: M Center Human Resources Manager: MARISSA : 1970 Requested By: Lilia Bundy Order Number: [id number] MD: Allen Buchanan Measurements Intervals [place] Rate: 85 P: 33 SC: 168 QRS: -80 QRSD: 103 T: 58 QT: 360 QTc: 428 Interpretive Statements Sinus rhythm Inferior infarct, old Anterior infarct, old Compared to ECG 03/24/2018 16:19:48 Sinus tachycardia no longer present Myocardial infarct finding still present Electronically Signed On 04-30-2018 10:51:20 SCHOOL GUIDANCE COUNSELOR by Allen Buchanan [email or web address] <ELECTRONICALLY SIGNED> By: Allen Buchanan MD, [facility] 04/30/18 1051 24 24 Allen Buchanan MD, [facility] /EPI
--- NOTE | 2018-04-30 11:51 | NUR ---
MET WITH PT TO DISCUSS HOME SITUATION/DC PLANNING. PT LIVES IN MOBILE HOME, HAS CAREGIVER AND HH THRU [facility]. 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 PT STATES HE HAS A CARBON MONOXIDE MONITOR NOW AND IT IS WORKING 'FINE.' PT HAS CANE AND WALKER HE USES AT HOME. DENIES DC NEEDS AND HAS POSSIBLE DC ORDER FOR TODAY. HE STATES HE CAN CALL FOR A RIDE HOME
--- NOTE | 2018-04-30 12:13 | NUR ---
PT ALERT TO PERSON, PLACE AND SITUATION. VSS. AFEBEBRILE. ORTHOSTATAICS OBTAINED, CHARTED & NEGATIVE. PT UP STAND BY ASSIST. FALL PRECAUTIONS IN PLACE PT REPORTS FALLING YESTERDAY. WILL CONTINUE PLAN OF CARE.
--- NOTE | 2018-04-30 16:14 | NUR ---
WAS ASKED TO ARRANGE TRANSPORT HOME, PT HAD MEDICAID. SET UP THRU [facility]. THEY WILL PICK PT UP WITHIN 3HRS OF 1600. PT AWARE. STATES HE IS ABLE AMBULATE TO CAR AND TO HOUSE. UPDATED NURSE AND ALSO LEFT CAB VOUCHER IN CASE [facility] UNABLE TO CRYSTAL GRINDER PT THE WEATHER IS SNOWY. [facility] [phone] RIDE #[id number]
--- NOTE | 2018-04-30 17:56 | NUR ---
DISCHARGE ORDERS RECEIVED. PT INSTRUCTED ON DISCHARGE. PT'S EMERGENCY CONTACT MARLENE, NOTIFIED THAT PT HAS LEFT.
== END 2018-04-30 18:57 | disposition home or self-care (01) ==
LOC: M.ERS 21:21 → M.2W 04-30 02:41 → M.TBA-ER 04-30 02:41 → M.2W 04-30 03:28
PROVIDERS: Emergency Medicine; ADMIT Internal Medicine
DX: I95.2 Hypotension due to drugs (principal); S80.212A Abrasion, left knee, initial encounter; S80.211A Abrasion, right knee, initial encounter; F10.20 Alcohol dependence, uncomplicated; E11.65 Type 2 diabetes mellitus with hyperglycemia; E86.0 Dehydration; F32.9 Major depressive disorder, single episode, unspecified; Z87.891 Personal history of nicotine dependence; Z79.82 Long term (current) use of aspirin; Z79.4 Long term (current) use of insulin; W19.XXXA Unspecified fall, initial encounter; Y93.89 Activity, other specified; Y92.89 Other specified places as the place of occurrence of the external cause

== ENCOUNTER 2018-05-16 11:23 | Inpatient (IN) | payer MEDICAID ==
[~2018-05-16] VITALS: Ht 167.6 cm; Wt 55.8 kg
[2018-05-16] VITALS (27 sets, daily range): BP systolic 68–133; BP diastolic 43–83
--- NOTE | ~2018-05-16 | CON ---
[address] [address] CONSULTATION Name: JONESBHAVYA Joy Room: [address] IN .R.#: [id number] Admission: 05/16/18 Attend Phys: Sylvester Motley MD Discharge: Date of : 70 Report #: [id number] THIS REPORT FOR: //name// CC: Sylvester Bruce HISTORY OF PRESENT ILLNESS: This is a pleasant 47-year-old gentleman with past medical history significant for alcohol abuse, hypertension, diabetes, coronary artery disease and bipolar disorder. The patient was previously seen in February when he presented with acute carbon monoxide poisoning, at which time, EGD and colonoscopy were performed because of sudden-onset anemia. The patient was noted to have LA grade D esophagitis at that time and was recommended to be on a PPI twice a day and a repeat upper endoscopy was recommended in 3 months' time. The patient has been admitted because of decreased p.o. intake and lack of compliance with insulin. The patient was noted to be in diabetic ketoacidosis. Additionally, the patient reports epigastric abdominal pain, nausea and vomiting and throwing up large amount of coffee-ground emesis. The patient denies any arnel hematemesis or hematochezia and melena. PAST MEDICAL HISTORY: As mentioned above, the patient has a past medical history significant for bipolar disorder, hypertension, diabetes and LA grade D esophagitis. PAST SURGICAL HISTORY: The patient had coronary artery bypass. SOCIAL HISTORY: The patient reports drinking half a pint of hard liquor every day and has been doing this for the last several years. The patient quit smoking in the past and denies recreational drug use. FAMILY HISTORY: There is no family history of gastric or colorectal malignancies. REVIEW OF SYSTEMS: A comprehensive 10-point review of systems is negative, except for what is mentioned in the HPI. PHYSICAL EXAMINATION: GENERAL: The patient is alert, awake and oriented x 3. HEENT: Pupils are equal, round and reactive to light and accommodation. Mucous membranes are moist. There is no congestion. LUNGS: Clear to auscultation bilaterally. CARDIOVASCULAR EXAMINATION: Rate and rhythm regular, S1, S2 present. ABDOMEN: Soft. There is no distention, guarding or rigidity. SKIN: There is no scleral icterus or spider angiomata. No asterixis is present. VITAL SIGNS: Temperature 36.7, pulse rate 109, respirations 14, blood pressure 86/61 and pulse ox 100%. [place] [address] CONSULTATION Name: BHAVYA JONES Room: [address]#: [id number] Admission: 05/16/18 Attend Phys: Sylvester Motley MD Discharge: Date of : 70 Report #: [id number] LABORATORY DATA: Hemoglobin on presentation 6.4, hematocrit 18.9. After transfusion, his hemoglobin improved to 8.0, hematocrit 23.3, platelet count 147,000 and WBC count 9.7. Sodium 140, potassium 3.5, chloride 103, bicarbonate 33, BUN 49 and creatinine 1.2. ASSESSMENT AND PLAN: This is a pleasant 47-year-old male with past medical history significant for diabetes, hypertension, coronary artery disease, bipolar disorder and esophagitis, who presented to the hospital with diabetic ketoacidosis. The patient was incidentally noted to have a low hemoglobin of 6.4, elevated BUN and creatinine ratio and reported coffee-ground emesis. I would recommend getting an upper GI endoscopy to rule out peptic ulcer disease. The patient can have clear liquid diet today and he needs to remain n.p.o. past midnight. We will make further recommendations based on the results of the upper GI endoscopy. By: [id number] Gongora MD /nt
[2018-05-16 12:01] LABS: ABSOLUTE BASOPHILS 0.1 thou/uL (0.0-0.2); ABSOLUTE LYMPHOCYTES 1.5 thou/uL (0.8-5.3); ABSOLUTE MONOCYTES 0.7 thou/uL (0.0-1.2); ABSOLUTE NEUTROPHILS 7.8 thou/uL (1.6-8.1); BASOPHILS 0.8 %; HEMATOCRIT 22.7 % (42.0-52.0); HEMOGLOBIN 7.7 gm/dL (14.0-18.0); LYMPHOCYTES 14.8 %; MCH 32.3 pg (26.0-34.0); MCHC 33.9 g/dL (28.0-37.0); MCV 95.4 fL (80.0-100.0); MONOCYTES 6.8 %; MPV 7.6 fl. (7.2-11.1); NUCLEATED RBCS 0 /100WBC; PLATELET COUNT* 192 thou/uL (150-400); POLYS 77.6 %; RBC 2.38 mil/uL (4.50-6.00); RDW-CV 15.7 % (10.5-14.5); WBC 10.1 thou/uL (4.0-11.0)
[2018-05-16 12:17] LABS: APTT 27.1 Seconds (25.0-31.3); PROTIME 10.4 Seconds (9.20-11.50)
[2018-05-16 12:30] LABS: ANION GAP 4 mmol/L (7-16); BUN 114 mg/dL (7-18); CALCIUM 6.6 mg/dL (8.5-10.1); CHLORIDE 86 mmol/L (98-107); CO2 38 mmol/L (21-32); CREATININE 3.5 mg/dL (0.6-1.3); POTASSIUM 3.9 mmol/L (3.5-5.1); SODIUM 128 mmol/L (136-145)
[2018-05-16 12:34] LABS: GLUCOSE 627 mg/dL (70-99)
[2018-05-16 12:39] LABS: ALBUMIN 2.4 g/dL (3.4-5.0); ALKALINE PHOSPHATASE 69 U/L (46-116); CK-MB MASS 0.5 ng/mL (<0.5-3.6); LIPASE 38 U/L (73-393); MAGNESIUM 1.4 mg/dL (1.8-2.4); NT-PRO BRAIN NAT PEPTIDE 1501 pg/mL (<300); SGOT 17 U/L (15-37); SGPT 21 U/L (30-65); TOTAL BILIRUBIN 0.2 mg/dL (<0.1-1.0); TOTAL PROTEIN 5.5 g/dL (6.4-8.2); TROPONIN-I LEVEL <0.06 ng/mL (<0.06)
[2018-05-16 12:58] LABS: URINE BILIRUBIN NEGATIVE (Negative); URINE BLOOD TRACE (Negative); URINE CLARITY CLEAR; URINE COLOR YELLOW; URINE GLUCOSE-RANDOM 3+ (Negative); URINE KETONES TRACE (Negative); URINE LEUKOCYTES-REFLEX NEGATIVE (Negative); URINE NITRITE-REFLEX NEGATIVE (Negative); URINE PROTEIN TRACE (Negative); URINE SPECIFIC GRAVITY <= 1.005 (1.005-1.030); URINE UROBILINOGEN 0.2 E.U./dl (0.2-1.0)
[2018-05-16 14:41] LABS: % SATURATION 59 % (20-39); IRON 123 ug/dL (50-175)
[2018-05-16 17:43] LABS: HEMATOCRIT 19.4 % (42.0-52.0); HEMOGLOBIN 6.7 gm/dL (14.0-18.0)
[2018-05-16 17:48] LABS: CALCIUM 6.3 mg/dL (8.5-10.1); CREATININE 2.1 mg/dL (0.6-1.3); POTASSIUM 3.1 mmol/L (3.5-5.1)
[2018-05-16 17:51] LABS: ALBUMIN 2.2 g/dL (3.4-5.0); MAGNESIUM 1.3 mg/dL (1.8-2.4); PHOSPHORUS* 1.8 mg/dL (2.5-4.9)
--- NOTE | 2018-05-16 18:14 | NUR ---
PT TRANSFERED TO THE UNIT FROM ED. PT HYOTENSIVE AND IS ON INSULIN DRIP AT THIS TIME. DAVIS LUX AND CHEL RN ASSISTED IN DKA PROTOCOL AT THIS TIME. PT ST ON THE MONITOR AND IS FLAT, LETHARGIC, WEAK AND FATIGUED AT THIS TIME. WILL CHANGE THE PT TO I/2 NS AND PROVIDE WITH POTASSIUM PER DKA PROTOCOL SOON VERIFIED BY PHARMACY. PT HAS NO NOTICABLE WOUNDS AT THIS TIME. PT HAS LIM WITH TEMP PROBE AND IS NEGATIVE ON SEPSIS SCREEN. PT HAS 3L PICC IN L IJ AT THIS TIME. ORDER FOR NG PLACEMENT AND GI CONSULT, PT IS ALCOHOLIC AND IS ON CIWA PROTOCOL, WILL WAIT FOR GI TO DETERMINE WHAT TO DO WITH NG PLACEMENT INSTRUCTED BY SOLID TIRE FINISHER. LEVOPHED TITRATED TO MAINTAIN MAP SCORE GREATER THAN 60, PT STILL HAS LOW MAP SCORES. NO DEXTROSE HUNG THERE IS DEXTROSE IN BANANA BAG HANGING AT THIS TIME. PT IS REPORTED TO HAVE HAD LAST ALCOHOL DRINK 1.5 DAYS AGO. PT TITRATED TO 4L PER NC TO MAINTAIN SATS GREATER THAN 92% THIS SHIFT. WILL PASS ON IN REPORT.
[2018-05-16 19:00] LABS: HEMOGLOBIN 6.4 gm/dL (14.0-18.0)
[2018-05-16 19:01] LABS: HEMATOCRIT 18.9 % (42.0-52.0)
--- NOTE | 2018-05-16 19:35 | NUR ---
CALLED TO CLARIFY ORDERS. ORDERS TO STOP BANANA BAG AND PROCEED WITH DKA PROTOCOL FLUIDS. PT CRITICAL HGB 6.4 ORDERS TO GIVE ONE UNIT OF BLOOD RECHECK H&H IF HGB <7 GIVE ANOTHER UNIT. PT LETHARGIC, TACHY, LOW GRADE FEVER. ON INSULIN GTT, HOURLY ACCUCHECK. WILL CONTINUE TO MONITOR.
[2018-05-16 21:25] LABS: CALCIUM 6.4 mg/dL (8.5-10.1); CREATININE 1.8 mg/dL (0.6-1.3); POTASSIUM 3.4 mmol/L (3.5-5.1)
[2018-05-16 21:28] LABS: ALBUMIN 2.3 g/dL (3.4-5.0); MAGNESIUM 1.2 mg/dL (1.8-2.4); PHOSPHORUS* 1.8 mg/dL (2.5-4.9)
[2018-05-17] VITALS (27 sets, daily range): BP systolic 81–136; BP diastolic 55–84
[2018-05-17 01:20] LABS: CALCIUM 6.7 mg/dL (8.5-10.1); CREATININE 1.4 mg/dL (0.6-1.3); POTASSIUM 3.4 mmol/L (3.5-5.1)
[2018-05-17 01:23] LABS: ALBUMIN 2.4 g/dL (3.4-5.0); PHOSPHORUS* 1.8 mg/dL (2.5-4.9)
[2018-05-17 05:13] LABS: HEMATOCRIT 23.3 % (42.0-52.0); HEMOGLOBIN 8.1 gm/dL (14.0-18.0); MCH 32.5 pg (26.0-34.0); MCV 92.8 fL (80.0-100.0); MPV 7.2 fl. (7.2-11.1); RBC 2.51 mil/uL (4.50-6.00); RDW-CV 15.9 % (10.5-14.5); WBC 9.7 thou/uL (4.0-11.0)
[2018-05-17 05:27] LABS: ALBUMIN 2.4 g/dL (3.4-5.0); CREATININE 1.2 mg/dL (0.6-1.3); MAGNESIUM 1.8 mg/dL (1.8-2.4); POTASSIUM 3.5 mmol/L (3.5-5.1); TOTAL BILIRUBIN 0.4 mg/dL (<0.1-1.0); TOTAL PROTEIN 5.2 g/dL (6.4-8.2)
--- NOTE | 2018-05-17 05:29 | NUR ---
PATIENT SLOWLY PROGRESSING TOWARDS GOALS. CONTINUES ON DKA PROTOCOL. INSULIN GTT AND LEVO. TITRATING LEVO DOWN TOLERATING WELL. PT STATED HE FEELS ALOT BETTER. ORIENT X4. VISIBLE TREMORS PRESENT CIWA SCORE 4 D/T TREMORS. PT RUNS BETWEEN SINUES RHYTHM AND TACHY LOW 100'S. TOOK OF NC @ 2300 HAS BEEN MAINTAING OXYGEN BETWEEN 95-100. RECEIVED ONE UNIT OF BLOOD TOLERATED WELL. WAITING ON H&H. ELECTROLYTES STARTING TO NORMALIZE. NO VOICED CONCERNS AT THIS TIME PT SLEEPING IN BED. CALL LIGHT WITHIN REACH. BED TO LOWEST POSITION.
--- NOTE | 2018-05-17 10:09 | EKG ---
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1970 Requested By: Devan Barker Order Number: [id number] MD: Jason Thakur Measurements Intervals [place] Rate: 112 P: 63 MS: 142 QRS: 269 QRSD: 96 T: 67 QT: 362 QTc: 494 Interpretive Statements Sinus tachycardia Inferior infarct, old Anterior infarct, old Baseline wander in lead(s) V2 Compared to ECG 04/29/2018 21:25:21 Sinus rhythm no longer present Myocardial infarct finding still present Electronically Signed On 05-17-2018 10:09:40 VB NET PROGRAMMER by Jason Thakur [email or web address] <ELECTRONICALLY SIGNED> By: Jason Thakur MD, FAC 05/17/18 1009 1157 1157 Jason Thakur MD, [facility] /EPI
--- NOTE | 2018-05-17 10:27 | NUR ---
Nutrition: Nursing risk 2 points. Per [employer] pt usually weighs around 120-130#. Current wt is 129# - no significant changes noted. Pt was admitted with DKA, N/V AIRPORT SCREENER. H/o DM, bipolar, ETOHism, CAD. Currently NPO. BG 194, alb 2.4, prealb 17.4. Poor intake d/t N/V AIRPORT SCREENER and now currently NPO. Hopeful for good po intake once diet advances. Recommend advancing to goal of CHO controlled. Low risk at this time.
--- NOTE | 2018-05-17 11:42 | NUR ---
PT.AWAKE. SPEAKS SOFTLY. HE SAID NOTHING HAS CHANGED SINCE HE WAS IN A COUPLE OF WEEKS AGO. HE LIVES ALONE. HAS A CANE OR WALKER AND USES THEM NEEDED AT HOME. HE SAID HE HAS A GLUCOMETER AND TRYS TO TAKE HIS BLOOD SUGAR 3 TIMES/DAY. HE LET IT GET AWAY FROM HIM THIS TIME. HE HAS USED [facility] IN THE PAST AND WOULD USE THEM AGAIN IF ORDERED. CM WILL FOLLOW.
[2018-05-17 12:08] LABS: HEMATOCRIT 23.3 % (42.0-52.0)
--- NOTE | 2018-05-17 16:10 | NUR ---
RECEIVED REPORT FROM DAVIS BAGLEY. ASSESSMENT CHARTED. AFEBRILE. PT ON LEVO AND PROTONIX GTT. PT DENIES ANY BLOODY STOOLS OR EMESIS. GI ROUNDED ON PT AND WILL PERFORM AN EGD TOMORROW. CLEAR LIQUID DIET. WILL CONTINUE TO MONITOR.
[2018-05-18] VITALS (43 sets, daily range): BP systolic 78–140; BP diastolic 43–85
[2018-05-18 03:20] LABS: HEMATOCRIT 20.5 % (42.0-52.0); MCH 32.3 pg (26.0-34.0); MCV 94.8 fL (80.0-100.0); MPV 7.1 fl. (7.2-11.1); RBC 2.16 mil/uL (4.50-6.00); RDW-CV 15.7 % (10.5-14.5); WBC 6.6 thou/uL (4.0-11.0)
[2018-05-18 03:40] LABS: ALBUMIN 2.3 g/dL (3.4-5.0); CREATININE 0.9 mg/dL (0.6-1.3); POTASSIUM 4.1 mmol/L (3.5-5.1); TOTAL BILIRUBIN 0.4 mg/dL (<0.1-1.0); TOTAL PROTEIN 4.8 g/dL (6.4-8.2)
[2018-05-18 04:11] LABS: MAGNESIUM 0.9 mg/dL (1.8-2.4)
--- NOTE | 2018-05-18 04:56 | NUR ---
PT. HAS REMAINED ALERT AND ORIENTED, SINUS RHYTHM/TACHY AT TIMES ON SECURITY SYSTEM ANALYST. BLOOD GLUCOSE 80 AT 2100, INSULIN HELD. PT. HAS REMAINED NPO SINCE MIDNIGHT. EGD SCHEDULED TODAY. LEVOPHED GTT AT 2MCG/MIN. IVF DC'D. PT. CONTINENT OF URINE. PROTONIX GTT REMAINS INFUSING. DENIED PAIN THROUGHOUT SHIFT. CALL LIGHT IN REACH, WILL CONTINUE TO MONITOR.
[2018-05-19] VITALS (30 sets, daily range): BP systolic 71–145; BP diastolic 39–90
[2018-05-19 05:48] LABS: HEMATOCRIT 21.8 % (42.0-52.0); HEMOGLOBIN 7.3 gm/dL (14.0-18.0); MCH 31.8 pg (26.0-34.0); MCHC 33.2 g/dL (28.0-37.0); MCV 95.9 fL (80.0-100.0); MPV 7.6 fl. (7.2-11.1); RBC 2.28 mil/uL (4.50-6.00); RDW-CV 15.3 % (10.5-14.5); WBC 6.8 thou/uL (4.0-11.0)
[2018-05-19 06:00] LABS: CALCIUM 8.4 mg/dL (8.5-10.1); CREATININE 0.8 mg/dL (0.6-1.3); POTASSIUM 4.4 mmol/L (3.5-5.1)
--- NOTE | 2018-05-19 06:59 | NUR ---
Pt reports feeling well. Remains on Levophed gtt at 1 mcg/kg/min as MAP drops below 55 when off; even got as low as 49 on one occasion. Afebrile. VSS otherwise. Medicated with lorazepam twice per pt request. Will continue to monitor.
--- NOTE | 2018-05-19 18:55 | NUR ---
REPORT RECEIVED FROM DAVIS PARHAM. ASSESSMENT CHARTED. AFEBRILE. 1 UNIT OF BLOOD TRANSFUSED. PT OFF LEVO. PRESSURES SOFT BUT REMAINED OFF PRESSOR SINCE 1200. VITALS STABLE. PT UP AND SAT IN CHAIR. TOLERATED WELL. PT UPDATED ON PLAN OF CARE.
[2018-05-20] VITALS (11 sets, daily range): BP systolic 76–114; BP diastolic 46–77
[2018-05-20 04:13] LABS: ABSOLUTE BASOPHILS 0.1 thou/uL (0.0-0.2); ABSOLUTE EOSINOPHILS 0.1 thou/uL (0.0-0.7); ABSOLUTE LYMPHOCYTES 2.4 thou/uL (0.8-5.3); ABSOLUTE MONOCYTES 0.4 thou/uL (0.0-1.2); ABSOLUTE NEUTROPHILS 4.8 thou/uL (1.6-8.1); BASOPHILS 0.7 %; EOSINOPHILS 1.6 %; HEMATOCRIT 26.6 % (42.0-52.0); MCV 91.5 fL (80.0-100.0); MONOCYTES 5.6 %; MPV 7.7 fl. (7.2-11.1); NUCLEATED RBCS 0 /100WBC; PLATELET COUNT* 163 thou/uL (150-400); POLYS 61.1 %; RBC 2.91 mil/uL (4.50-6.00); RDW-CV 15.7 % (10.5-14.5); WBC 7.8 thou/uL (4.0-11.0)
[2018-05-20 04:17] LABS: HEMOGLOBIN 9.3 gm/dL (14.0-18.0)
[2018-05-20 04:35] LABS: ALBUMIN 2.7 g/dL (3.4-5.0); CALCIUM 8.7 mg/dL (8.5-10.1); CREATININE 0.9 mg/dL (0.6-1.3); POTASSIUM 4.6 mmol/L (3.5-5.1); TOTAL BILIRUBIN 0.2 mg/dL (<0.1-1.0); TOTAL PROTEIN 5.6 g/dL (6.4-8.2)
--- NOTE | 2018-05-20 05:36 | NUR ---
Pt reports resting well. No complaints. States he has been hungry frequently. Box lunch given at bedtime following dose of lantus. Remains of Levophed; BP stable though down to 80s/40s from 7329-1905 while asleep. Otherwise MAP consistently >65. One dose of lorazepam given per pt request early this am. Will continue to monitor.
--- NOTE | 2018-05-20 10:05 | NUR ---
TRANSFER NOTE - REC REPORT FROM DAVIS LUX. AGREE WITH CHARTING. PT UP IN CHAIR AT THIS TIME. ORIENTED TO CALL LIGHT SYSTEM. WILL CONTINUE TO MONITOR.
--- NOTE | 2018-05-20 10:53 | NUR ---
Patient A&O denies pain or soa. Central line DCD iv [id number] left forarm. transfered to 3rd floor. report given tr [facility].
--- NOTE | 2018-05-20 17:47 | NUR ---
SHIFT NOTE - PT UP IN CHAIR FOR MOST OF THIS SHIFT. REC CALL FROM PT'S NEIGHBOR ([place]) [phone] STATING IF HE IS DISCHARGED TOMORROW THEN HE CAN BE HIS RIDE. WILL CONTINUE TO MONITOR.
[2018-05-21 07:40] VITALS: BP 87/62
[2018-05-21 11:42] VITALS: BP 87/62
[2018-05-21] MEDS ORDERED: PROTONIX40 M1 PO (14:05)
[2018-05-21 15:15] VITALS: BP 87/62
--- NOTE | 2018-05-21 15:18 | NUR ---
PATIENT IS ALERT AND ORIENTED TODAY, VITAL SIGNS ON ROOM AIR. PATIENT IS BEING DICHARGED TO HOME. PRESCRIPTION CALLED INTO PHARMACY. FRIEND CAME TO PICK PATIENT UP WITH SOME CONCERNS ABOUT LIVING CONDITIONS, CASE MANAGEMENT AND PATIENT EXPERIENCE STAFF INVOLVED WITH THAT. CASE MANAGEMENT GAVE HOTLINE NUMBER TO FRIEND IF NEEDED. DISCHARGE INSTRUCTIONS GIVEN AND QUESTIONS ANSWERED FOR PATIENT. LEFT VIA WHEELCHAIR TO HOME WITH FRIEND.
--- NOTE | 2018-05-21 15:51 | NUR ---
LIZETT met with pt friends/neighbors who provide care and check on pt. Pt friends expressing concern for pt safety at home, medication management, basic needs, etc. LIZETT explained that pt would have to agree to move into LTC facility and there would need to be an accepting facility as well, pt age and alcohol history limits LTC placement options. Pt is independent in mobility and ADLs when he chooses to perform ADLs. LIZETT provided pt friend with hotline number in the instance that friend had evidence that pt was endangering himself. LIZETT also spoke with pt [facility] telehealth case manager who follow up with pt today. Pt dc home alone with friends support.
== END 2018-05-21 15:24 | disposition home or self-care (01) | DRG 377 ==
LOC: M.ERS 11:23 → M.ICU 13:00 → M.TBA-ER 13:00 → M.ICU 15:03 → M.3W 05-20 09:56
PROVIDERS: Family Medicine; Internal Medicine; ADMIT Internal Medicine
PROC: 30233N1 Transfusion of Nonautologous Red Blood Cells into Peripheral Vein, Percutaneous Approach (ICD-10-PCS; principal; 2018-05-16)
PROC: 0DJ08ZZ Inspection of Upper Intestinal Tract, Via Natural or Artificial Opening Endoscopic (ICD-10-PCS; 2018-05-18)
DX: K92.2 Gastrointestinal hemorrhage, unspecified (principal); E11.10 Type 2 diabetes mellitus with ketoacidosis without coma; N17.0 Acute kidney failure with tubular necrosis; R57.8 Other shock; E87.1 Hypo-osmolality and hyponatremia; E87.3 Alkalosis; D62 Acute posthemorrhagic anemia; K20.9 Esophagitis, unspecified; F31.9 Bipolar disorder, unspecified; D64.9 Anemia, unspecified; F10.20 Alcohol dependence, uncomplicated; I25.10 Atherosclerotic heart disease of native coronary artery without angina pectoris; Z87.891 Personal history of nicotine dependence; Z86.73 Personal history of transient ischemic attack (TIA), and cerebral infarction without residual deficits; Z95.1 Presence of aortocoronary bypass graft; Z79.899 Other long term (current) drug therapy